=== PATIENT | male | born 1945 | race Caucasian/White ===

== ENCOUNTER 2019-07-09 13:44 | Inpatient (IN) | payer MEDICARE, OTHER ==
[~2019-07-09] VITALS: Ht 175.3 cm; Wt 82.2 kg
[~2019-07-09 13:44] MED LIST: ALB0.5UD IH; ASPI-1265 PO; CYAN500T63 PO; LISI-600 PO; LOP25T PO; MULT-342 PO; PANT40TA39 PO; SIMV80TA2 PO; SPIIN IH; TIOT18CA7 IH; etomidate 2mg/ml inj. ONE
[2019-07-09] MEDS ORDERED: aspirin 81mg tab.chew PO ONE (14:10)
[2019-07-09] MEDS ORDERED: diltiazem 5mg/ml 5ml inj. IV ONE ×2 (14:15→15:00)
[2019-07-09] MEDS ORDERED: methylPREDNISolone sod succ 125mg/2ml vial IV ONE (14:25)
[2019-07-09] MEDS ORDERED: ipratropium/albuterol 3ml nebule NEB ONE (14:25)
[2019-07-09 14:48] LABS: BASOPHILS # (AUTO) 0.1 X10'3 (0-0.2); BASOPHILS % (AUTO) 0.6 % (0-1); EOSINOPHILS # (AUTO) 0.3 X10'3 (0-0.9); EOSINOPHILS % (AUTO) 2.5 % (0-6); HEMATOCRIT 40.6 % (42.0-52.0); HEMOGLOBIN 13.5 g/dl (14.0-17.9); LYMPHOCYTES # (AUTO) 0.7 X10'3 (1.1-4.8); LYMPHOCYTES % (AUTO) 6.2 % (21-51); MEAN CORPUSCULAR HEMOGLOBIN 32.2 PG (27.0-31.0); MEAN CORPUSCULAR HGB CONC 33.3 g/dL (33.0-36.5); MEAN CORPUSCULAR VOLUME 96.6 FL (78-98); MEAN PLATELET VOLUME 8.6 FL (7.4-10.4); MONOCYTES # (AUTO) 1.4 X10'3 (0-0.9); MONOCYTES % (AUTO) 12.2 % (2-12); NEUTROPHILS # (AUTO) 8.7 X10'3 (1.8-7.7); NEUTROPHILS % (AUTO) 78.5 % (42-75); PLATELET COUNT 269 X10'3 (140-440); RED BLOOD COUNT 4.21 X10'6 (4.70-6.10); WHITE BLOOD COUNT 11.1 X10'3 (4.5-11.0)
--- NOTE | 2019-07-09 14:48 | NUR ---
discussed plan with dr murillo second culture drawn prior to levaquin administration 2 liters ns infused discussed elevated hr in the 140[address] st
[2019-07-09] MEDS ORDERED: normal saline 1000ML IV soln IV ONE (14:55)
[2019-07-09] MEDS ORDERED: levoFLOXACIN-Levaquin 750MG/D5 150 ML IV ONE (14:55)
[2019-07-09 15:00] LABS: ALANINE AMINOTRANSFERASE 23 U/L (12-78); ALBUMIN/GLOBULIN RATIO 0.6 (1.1-1.5); ALKALINE PHOSPHATASE 68 IU/L (46-116); ANION GAP 8 (8-16); ASPARTATE AMINO TRANSFERASE 14 U/L (10-37); BILIRUBIN,TOTAL 0.6 MG/DL (0.1-1.0); BLOOD UREA NITROGEN 20 MG/DL (7-18); CHLORIDE 101 MMOL/L (99-107); CREATININE 1.25 MG/DL (0.60-1.10); GLUCOSE 132 MG/DL (70-104); SODIUM 138 MMOL/L (135-145); TOTAL CARBON DIOXIDE 29.4 MMOL/L (24-32); TOTAL PROTEIN 7.9 G/DL (6.4-8.2); eGFR 57 ML/MIN
[2019-07-09] MEDS ORDERED: diltiazem-D5W 125mg/125ml 125 ML IV SCH (15:00)
[2019-07-09] MEDS ORDERED: diltiazem-NS 100mg/100ml 125 ML IV SCH (15:03)
[2019-07-09 15:08] LABS: MAGNESIUM 1.5 MG/DL (1.5-2.4)
[2019-07-09] MEDS ORDERED: LORazepam 2 mg/ml vial IV ONE ×3 (15:15→15:45)
[2019-07-09 15:36] LABS: ABG BASE EXCESS -0.8 mmol/L (-2.0-3.0); ABG HCO3 23.9 mmol/L (22.0-26.0); ABG OXYGEN SATURATION 92.6 % (95-98); ABG PCO2 (T) 39.7 mmHg (35.0-45.0); ABG PH (T) 7.397 (7.350-7.450); ABG PO2 (T) 63.1 mmHg (83-108); ALLEN'S TEST Positive; FCOHb 1.5 % (0.5-1.5); FLOW 4 L/min; FMetHb 0.1 % (0.3-1.12); FO2Hb 91.1 % (94-100); TOTAL HEMOGLOBIN 13.8 G/dl (14.0-17.9)
[2019-07-09] MEDS: albuterol 2.5 MG/3 ML nebule CONTNEB PRN (15:42)
[2019-07-09] MEDS ORDERED: magnesium 2GM in 50ml NS 50 ML IV PRN (16:00)
[2019-07-09] MEDS ORDERED: potassium Cl 20 mEq SR tablet PO PRN ×2 (16:00)
[2019-07-09] MEDS ORDERED: HYDROcodone/acetaminophen 5mg/325mg tablet PO PRN (16:00)
[2019-07-09] MEDS ORDERED: LORazepam 1 MG tablet PO PRN (16:00)
[2019-07-09] MEDS ORDERED: magnesium hydroxide 30ml (MOM) UD suspension PO PRN (16:00)
[2019-07-09] MEDS ORDERED: morphine 2 MG/ML inj. syringe IV PRN (16:00)
[2019-07-09] MEDS ORDERED: magnesium 4gm in 100ml NS 100 ML IV PRN (16:00)
[2019-07-09] MEDS ORDERED: thiamine inj. 100 MG in normal saline 100ml IV soln 100 ML IV ONE (16:00)
[2019-07-09] MEDS ORDERED: ondansetron/PF 4mg/2ml inj IV PRN (16:00)
[2019-07-09] MEDS ORDERED: acetaminophen 325mg tablet PO PRN (16:00)
[2019-07-09] MEDS ORDERED: LORazepam 2 mg/ml vial IV PRN (16:00)
[2019-07-09] MEDS ORDERED: ipratropium/albuterol 3ml nebule NEB PRN (16:00)
[2019-07-09] MEDS ORDERED: magnesium Cl slow-release 64mg tablet PO PRN (16:00)
[2019-07-09] MEDS ORDERED: mag hydrox/Alum hydrox/simeth 30ml oral suspension PO PRN (16:00)
[2019-07-09] MEDS ORDERED: potassium CL 10mEq/100ml bag 100 ML IV PRN ×2 (16:00)
[2019-07-09] MEDS ORDERED: furosemide 10 MG/1 ML 10ml inj IV ONE (16:05)
[2019-07-09] MEDS ORDERED: magnesium 2GM in 50ml NS 50 ML IV ONE (16:25)
[2019-07-09] MEDS ORDERED: morphine 4 MG/ML inj SYRINge IV ONE (16:25)
[2019-07-09] MEDS: methylPREDNISolone sod succ 125mg/2ml vial IV SCH ×2 (16:32→23:55)
[2019-07-09] MEDS ORDERED: LORA10TA7 PO (16:50)
[2019-07-09] MEDS ORDERED: ASPI-611 PO (16:50)
[2019-07-09] MEDS ORDERED: DIPH25CA83 PO (16:50)
[2019-07-09] MEDS ORDERED: ATOR40TA PO (16:50)
[2019-07-09] MEDS ORDERED: AMLO5TAB PO (16:50)
[2019-07-09] MEDS ORDERED: BUDE10.2 INH (16:53)
[2019-07-09] MEDS ORDERED: pneumococcal 23-VAL P-sac vacc 25 mcg/0.5ml vial IMVAC ONE (17:20)
[2019-07-09] MEDS ORDERED: FLU VACC QS2019-20 36MOS UP/PF 60 MCG/0.5 ML SYRINGE IMVAC ONE (17:25)
[2019-07-09] MEDS: thiamine inj. 100 MG, folic acid inj. 2 MG in normal saline 100ml IV soln 100 ML IV SCH (17:32)
[2019-07-09] MEDS: MVI, adult No.4 with vit. K 10 ML in dextrose 5% water 500ml 500 ML IV SCH ×2 (17:32)
[2019-07-09] MEDS ORDERED: FLU VACC QS 2019-20 (6 MOS UP) 60 MCG/0.5 ML VIAL IMVAC ONE (17:35)
[2019-07-09 17:50] LABS: ABG BASE EXCESS -1.2 mmol/L (-2.0-3.0); ABG HCO3 25.5 mmol/L (22.0-26.0); ABG OXYGEN SATURATION 98.5 % (95-98); ABG PCO2 (T) 50.6 mmHg (35.0-45.0); ABG PH (T) 7.321 (7.350-7.450); ALLEN'S TEST Positive; FCOHb 1.2 % (0.5-1.5); FMetHb 0.2 % (0.3-1.12); FO2Hb 97.1 % (94-100); RESPIRATORY RATE 10 b/min; TOTAL HEMOGLOBIN 13.9 G/dl (14.0-17.9)
--- NOTE | 2019-07-09 17:50 | NUR ---
PHONE REPORT TO MACHINE OPERATOR ASSISTANTJOHNNY RITCHIE. PATIENT TO GO TO ROOM 4185W ON [facility] ON MONITOR
--- NOTE | 2019-07-09 17:52 | NUR ---
Received report from Ling TURNER. Patient will be admitted to room 3017B.
--- NOTE | 2019-07-09 17:59 | NUR ---
Paged Dr Thompson for patient ETOH withdrawl order set. PAGER ID: [phone] MESSAGE: Jacquelyn CELAYA. Uma Rick [id number]. Would you like orders for ETOH withdrawl medication set for patient? Thank you
[2019-07-09 18:00] VITALS: BP 109/83
--- NOTE | 2019-07-09 18:18 | NUR ---
Patient admitted to room 3017B.
--- NOTE | 2019-07-09 18:40 | NUR ---
Problems reprioritized. Patient report given, questions answered & plan of care reviewed with Sanjeev RN.
--- NOTE | 2019-07-09 18:42 | NUR ---
Patient in room PCU 3017. I have received report from Jacquelyn Griffin RN and had the opportunity to ask questions and assume patient care.
[2019-07-09] MEDS ORDERED: ipratropium/albuterol 3ml nebule NEB SCH (19:00)
[2019-07-09] MEDS ORDERED: haloperidol lactate 5mg/ml inj IM PRN (19:25)
[2019-07-09] MEDS ORDERED: metoprolol tartrate 1mg/ml inj IV PRN (19:25)
[2019-07-09] MEDS ORDERED: diltiazem 30mg tablet PO PRN (19:25)
[2019-07-09] MEDS ORDERED: haloperidol 5mg tablet PO PRN (19:25)
--- NOTE | 2019-07-09 19:30 | NUR ---
per MD Thompson, redraw ABG 2-3 hours after pt is back on Bipap. per MD Thompson, DC Cardizem 1 hour after po metroprolol administration
--- NOTE | 2019-07-09 19:43 | NUR ---
NOTIFIED PAGER ID: [phone] MESSAGE: Max Stephen, [id number]- pt O2 sat was 96% on 3L nc in ER at 1400 today, currently on breathing treatment at 6L and sat is 94%, and Bipap order was D/atilio, should I just titrate O2 via NC to 88-92%? and order ABG in 2-3 hours still?
[2019-07-09] MEDS ORDERED: metoprolol tartrate 25mg tablet PO SCH (20:00)
[2019-07-09] MEDS: lactobacillus rhamnosus 10,000 MMU CELLS/CAPSULE PO SCH (20:45)
[2019-07-09 22:00] VITALS: BP 101/88
[2019-07-09] MEDS: ipratropium/albuterol 3ml nebule NEB SCH (23:14)
[2019-07-10] VITALS (21 sets, daily range): BP systolic 78–124; BP diastolic 48–76
[2019-07-10 02:31] LABS: BASOPHILS % (AUTO) 0.2 % (0-1); EOSINOPHILS % (AUTO) 0.1 % (0-6); HEMATOCRIT 39.8 % (42.0-52.0); HEMOGLOBIN 12.9 g/dl (14.0-17.9); LYMPHOCYTES # (AUTO) 0.3 X10'3 (1.1-4.8); LYMPHOCYTES % (AUTO) 3.2 % (21-51); MEAN CORPUSCULAR HGB CONC 32.4 g/dL (33.0-36.5); MEAN CORPUSCULAR VOLUME 98.7 FL (78-98); MEAN PLATELET VOLUME 8.7 FL (7.4-10.4); MONOCYTES # (AUTO) 0.6 X10'3 (0-0.9); MONOCYTES % (AUTO) 5.7 % (2-12); NEUTROPHILS # (AUTO) 8.8 X10'3 (1.8-7.7); NEUTROPHILS % (AUTO) 90.8 % (42-75); PLATELET COUNT 294 X10'3 (140-440); RED BLOOD COUNT 4.03 X10'6 (4.70-6.10); RED CELL DISTRIBUTION WIDTH 14.3 % (11.5-14.5); WHITE BLOOD COUNT 9.7 X10'3 (4.5-11.0)
[2019-07-10 02:41] LABS: ALBUMIN 2.8 G/DL (3.4-5.0); ANION GAP 11 (8-16); BLOOD UREA NITROGEN 31 MG/DL (7-18); BUN/CREATININE RATIO 13.5 (5.4-32.0); CALCIUM 10.4 MG/DL (8.5-10.1); CHLORIDE 100 MMOL/L (99-107); GLUCOSE 182 MG/DL (70-104); MAGNESIUM 3.3 MG/DL (1.5-2.4); POTASSIUM 5.9 MMOL/L (3.5-5.1); SODIUM 135 MMOL/L (135-145); TOTAL CARBON DIOXIDE 24.1 MMOL/L (24-32); eGFR 28 ML/MIN
[2019-07-10 03:20] LABS: ABG BASE EXCESS -7.1 mmol/L (-2.0-3.0); ABG HCO3 21.4 mmol/L (22.0-26.0); ABG OXYGEN SATURATION 91.1 % (95-98); ABG PCO2 (T) 54.8 mmHg (35.0-45.0); ABG PH (T) 7.208 (7.350-7.450); ABG PO2 (T) 68.5 mmHg (83-108); ALLEN'S TEST Positive; FCOHb 0.5 % (0.5-1.5); FMetHb 0.1 % (0.3-1.12); FO2Hb 90.6 % (94-100); MINUTE VOLUME 30 L/min; PATIENT TEMPERATURE 36.8; RESPIRATORY RATE 18 b/min; RESPIRATORY RATE (OBSERVED) 20 b/min; TOTAL HEMOGLOBIN 13.8 G/dl (14.0-17.9)
[2019-07-10] MEDS ORDERED: normal saline 500ml IV soln 500 ML IV ONE (03:35)
--- NOTE | 2019-07-10 03:43 | NUR ---
NOTIFIED DR. Boston called, pt arousability has gone down, 2mg ativan was given 30 minutes prior, read off all current vitals including FSBS and current ABGs. . ordered 500ml NS bolus, reduce ativan to 1mg and redraw ABG in 2 hr. will continue to monitor.
[2019-07-10] MEDS ORDERED: LORazepam 1 MG tablet PO PRN (03:45)
[2019-07-10] MEDS: ipratropium/albuterol 3ml nebule NEB SCH ×6 (03:55→22:30)
--- NOTE | 2019-07-10 06:30 | NUR ---
Problems reprioritized. Patient report given, questions answered & plan of care reviewed with Jacquelyn Griffin RN.
--- NOTE | 2019-07-10 06:33 | NUR ---
Patient in room PCU 3017B. I have received report from Sanjeev RN and had the opportunity to ask questions and assume patient care.
--- NOTE | 2019-07-10 07:14 | NUR ---
Pagecarol hospitalist, Dr. Michel. PAGER ID: [phone] MESSAGE: Alicia lafleur [phone]. RE Uma Stephen [id number]. K 5.9, Mg 3.3, Pt on BiPAP but struggling to maintain O2 sat. Rpt ABG done on NOC and RT coming to do another one. Please advise. Thank you!
[2019-07-10] MEDS: pantoprazole 40mg Tablet.DR PO SCH (07:30)
[2019-07-10] MEDS: atorvastatin 20mg tablet PO SCH (08:00)
[2019-07-10] MEDS: furosemide 20 MG/2 ML vial IV SCH ×2 (08:00→20:47)
[2019-07-10] MEDS: lactobacillus rhamnosus 10,000 MMU CELLS/CAPSULE PO SCH ×2 (08:00→20:47)
[2019-07-10] MEDS ORDERED: levoFLOXACIN-Levaquin 750MG/D5 150 ML IV SCH (08:00)
[2019-07-10] MEDS: loratadine 10mg tablet PO SCH (08:00)
[2019-07-10] MEDS ORDERED: enoxaparin 40mg/0.4ml syringe SQ SCH (08:00)
[2019-07-10] MEDS: aspirin 81mg tablet.DR PO SCH (08:00)
[2019-07-10] MEDS: multivitamins, therapeutics tablet PO SCH (08:00)
[2019-07-10] MEDS ORDERED: K and/or MAG REPLACEMENT MC SCH (08:00)
[2019-07-10] MEDS: amLODIPine 5mg tablet PO SCH (08:00)
[2019-07-10] MEDS: cyanocobalamin 500mcg tablet PO SCH (08:00)
[2019-07-10 08:05] LABS: ABG BASE EXCESS -10.7 mmol/L (-2.0-3.0); ABG HCO3 19.6 mmol/L (22.0-26.0); ABG OXYGEN SATURATION 89.3 % (95-98); ABG PCO2 (T) 62.9 mmHg (35.0-45.0); ABG PH (T) 7.111 (7.350-7.450); ABG PO2 (T) 69.5 mmHg (83-108); FCOHb 0.3 % (0.5-1.5); MINUTE VOLUME 11 L/min; RESPIRATORY RATE 16 b/min; RESPIRATORY RATE (OBSERVED) 21 b/min; TOTAL HEMOGLOBIN 14.6 G/dl (14.0-17.9)
--- NOTE | 2019-07-10 08:13 | NUR ---
Paged Dr Michel that new ABGs resulted, PAGER ID: [phone] MESSAGE: Jacquelyn lafleur [phone]. RE Uma Stephen [id number]. New ABG resulted, pH 7.111. RT increased pressures and changed to full face mask. Will repeat ABG within the hour.
[2019-07-10] MEDS ORDERED: normal saline 1000ml 1,000 ML IV ONE (08:30)
--- NOTE | 2019-07-10 08:31 | NUR ---
New order from Dr Michel for 500 cc bolus.
[2019-07-10] MEDS ORDERED: albuterol 2.5 MG/3 ML nebule CONTNEB PRN (08:35)
[2019-07-10] MEDS ORDERED: sodium bicarbonate (8.4%) 1 mEq/ml syringe IV ONE (08:35)
[2019-07-10] MEDS ORDERED: CefTRIAXone/D5W-Rocephin 1gm 50 ML IV ONE (08:35)
[2019-07-10] MEDS ORDERED: calcium chloride inj. 1,000 MG in normal saline 100ml IV soln 90 ML IV ONE (08:35)
[2019-07-10] MEDS ORDERED: normal saline 500ml IV soln 1,000 ML IV ONE (08:35)
--- NOTE | 2019-07-10 09:15 | NUR ---
Due to declining condition, order from Dr Michel for patient to transfer to unit. Dr Michael aware. Patient transferred to Critical Care, room 2009. Transferred with 3 RNs and RT. All belongings sent with patient. Report given to Latia TURNER.
[2019-07-10 09:50] LABS: ABG BASE EXCESS -11.7 mmol/L (-2.0-3.0); ABG HCO3 16.4 mmol/L (22.0-26.0); ABG OXYGEN SATURATION 95.5 % (95-98); ABG PCO2 (T) 45.6 mmHg (35.0-45.0); ABG PH (T) 7.175 (7.350-7.450); FCOHb 0.4 % (0.5-1.5); FO2Hb 95.1 % (94-100); MINUTE VOLUME 16 L/min; RESPIRATORY RATE (OBSERVED) 26 b/min; TOTAL HEMOGLOBIN 12.9 G/dl (14.0-17.9)
[2019-07-10] MEDS ORDERED: NORepinephrine 8mg/ 250ml NS 250 ML IV ONE (09:50)
[2019-07-10] MEDS: diltiazem-NS 100mg/100ml 100 ML IV SCH (10:00)
[2019-07-10] MEDS: albuterol 2.5 MG/3 ML nebule CONTNEB PRN (10:02)
[2019-07-10] MEDS: thiamine inj. 100 MG, folic acid inj. 2 MG in normal saline 100ml IV soln 100 ML IV SCH (10:32)
[2019-07-10] MEDS: methylPREDNISolone sod succ 125mg/2ml vial IV SCH ×3 (10:32→20:47)
[2019-07-10] MEDS: MVI, adult No.4 with vit. K 10 ML in dextrose 5% water 500ml 500 ML IV SCH ×2 (10:34)
[2019-07-10 12:15] LABS: ALBUMIN 2.2 G/DL (3.4-5.0); SODIUM 137 MMOL/L (135-145)
[2019-07-10 12:57] LABS: ALBUMIN/GLOBULIN RATIO 0.6 (1.1-1.5); ALKALINE PHOSPHATASE 69 IU/L (46-116); ANION GAP 15 (8-16); BILIRUBIN,TOTAL 2.1 MG/DL (0.1-1.0); BLOOD UREA NITROGEN 42 MG/DL (7-18); BUN/CREATININE RATIO 14.4 (5.4-32.0); CHLORIDE 104 MMOL/L (99-107); CREATININE 2.91 MG/DL (0.60-1.10); GLUCOSE 182 MG/DL (70-104); TOTAL CARBON DIOXIDE 18.1 MMOL/L (24-32); TOTAL PROTEIN 6.2 G/DL (6.4-8.2); eGFR 21 ML/MIN
[2019-07-10] MEDS ORDERED: sodium bicarbonate (8.4%) inj. 1 MEQ/ML ML ONE (12:58)
[2019-07-10 12:59] LABS: POTASSIUM 7.2 MMOL/L (3.5-5.1)
[2019-07-10 13:15] LABS: ABG BASE EXCESS -12.4 mmol/L (-2.0-3.0); ABG HCO3 17.5 mmol/L (22.0-26.0); ABG PCO2 (T) 56.6 mmHg (35.0-45.0); ABG PH (T) 7.107 (7.350-7.450); ABG PO2 (T) 86.1 mmHg (83-108); FCOHb 0.3 % (0.5-1.5); FMetHb 0.2 % (0.3-1.12); FO2Hb 93.5 % (94-100); MINUTE VOLUME 14 L/min; RESPIRATORY RATE 16 b/min; RESPIRATORY RATE (OBSERVED) 21 b/min; TOTAL HEMOGLOBIN 13.7 G/dl (14.0-17.9)
[2019-07-10 13:16] LABS: ALANINE AMINOTRANSFERASE 3385 U/L (12-78); ASPARTATE AMINO TRANSFERASE 4319 U/L (10-37)
[2019-07-10] MEDS ORDERED: calcium gluconate inj. 1 GM in normal saline 100ml IV soln 90 ML IV ONE (13:20)
[2019-07-10] MEDS ORDERED: etomidate 2mg/ml inj. IV ONE (13:25)
[2019-07-10] MEDS ORDERED: midazolam 2 mg/2 ml injection ONE (13:26)
[2019-07-10] MEDS ORDERED: midazolam 100mg in NS 100ml 100 ML IV PRN (13:45)
[2019-07-10] MEDS ORDERED: FENTANYL-0.9 % NACL/PF 100 ML IV PRN (13:45)
[2019-07-10] MEDS ORDERED: sodium polystyrene sulfonate 15gm/60ml oral suspension PO ONE (13:45)
[2019-07-10] MEDS ORDERED: dextrose 50%-water 50ml dispensing syringe IV ONE (14:20)
[2019-07-10] MEDS ORDERED: insulin regular, human 10 units/0.1 ml syringe IV ONE (14:20)
--- NOTE | 2019-07-10 14:40 | NUR ---
Initial assessment (07/10): Pt is admitted to the unit with dx SOB, sepsis, acute COPD, and clinical pneumonia. According to physical hx, pt is on oxygen and restless in bed, appears like in moderate distress from the alcohol withdrawal symptoms and respiratory distress, provided with banana bag. Pt is currently ALOC noted per MD. Pt is dehydrated, hypotensive, and in metabolic state per MD. Will advance diet as medically indicated to heart healthy. Will continue to monitor. Recommendations: 1. Advance diet as medically indicated to heart healthy 2. Weekly wts Addendum: 07/10/19 at [address] Amended: Links added. Addendum: 07/11/19 at [address] RD agree with sourcing internship note
[2019-07-10 14:50] LABS: ABG BASE EXCESS -11.8 mmol/L (-2.0-3.0); ABG HCO3 16.8 mmol/L (22.0-26.0); ABG OXYGEN SATURATION 89.3 % (95-98); ABG PH (T) 7.154 (7.350-7.450); ABG PO2 (T) 65.2 mmHg (83-108); FCOHb 0.3 % (0.5-1.5); FMetHb 0.1 % (0.3-1.12); FO2Hb 88.9 % (94-100); MINUTE VOLUME 8 L/min; PEEP 5 cm H2O; RESPIRATORY RATE 16 b/min; RESPIRATORY RATE (OBSERVED) 16 b/min; TIDAL VOLUME 500 mL; TOTAL HEMOGLOBIN 13.5 G/dl (14.0-17.9)
[2019-07-10] MEDS: sodium bicarbonate (8.4%) inj. 75 MEQ in dextrose 5% water 500ml 500 ML IV SCH ×2 (14:57→20:57)
[2019-07-10] MEDS ORDERED: albuterol 2.5 MG/3 ML nebule NEB SCH (15:00)
[2019-07-10] MEDS: FENTANYL-0.9 % NACL/PF 100 ML IV SCH (15:08)
[2019-07-10] MEDS: midazolam 100mg in NS 100ml 100 ML IV SCH ×2 (15:09→22:43)
[2019-07-10 15:42] LABS: CREATINE KINASE 298 U/L (39-308)
--- NOTE | 2019-07-10 16:32 | NUR ---
Received pt from PCU at 0830. Pt in respiratory distress on 70% FiO2 on bipap. Obtunded, unresponsive aside from infrequent movement of upper extremities. Pt received total of 2L NS boluses. Dr. Michael at bedside putting in ART and CVL. ART line BP reading 60s/40s. Levophed initiated. CRX shows L sided PNA. LA 4.0, K 4.0, Ca 7.0, Cr 2.91. Pt becoming more and more restless. ABGs worsening, on 100% FiO2. Dr. Michael called at 1300. Pt given bicarb, CaCl, and intubated at 1340. Placed coudee ahn and OGT. Sedated with fent and versed. LA increasing to 4.3. Kaexylate, D50 and insulin given for high K. Will redraw at 1700. Pt family aware and involved.
[2019-07-10 17:30] LABS: ALBUMIN/GLOBULIN RATIO 0.5 (1.1-1.5); ALKALINE PHOSPHATASE 70 IU/L (46-116); ANION GAP 15 (8-16); BILIRUBIN,TOTAL 2.3 MG/DL (0.1-1.0); BLOOD UREA NITROGEN 47 MG/DL (7-18); BUN/CREATININE RATIO 14.4 (5.4-32.0); CALCIUM 7.1 MG/DL (8.5-10.1); CHLORIDE 102 MMOL/L (99-107); CREATININE 3.26 MG/DL (0.60-1.10); GLUCOSE 329 MG/DL (70-104); SODIUM 135 MMOL/L (135-145); TOTAL CARBON DIOXIDE 18.1 MMOL/L (24-32); TOTAL PROTEIN 5.8 G/DL (6.4-8.2); eGFR 19 ML/MIN
[2019-07-10 17:37] LABS: POTASSIUM 6.4 MMOL/L (3.5-5.1)
[2019-07-10] MEDS: NORepinephrine 8mg/ 250ml NS 250 ML IV SCH (17:42)
[2019-07-10 17:55] LABS: ALANINE AMINOTRANSFERASE 5224 U/L (12-78); ASPARTATE AMINO TRANSFERASE > 7000 U/L (10-37)
[2019-07-10] MEDS ORDERED: dextrose 50%-water 50ml dispensing syringe IV PRN ×2 (17:55)
[2019-07-10] MEDS ORDERED: dextrose ORAL solution 15 GM/59 ML bottle PO PRN ×2 (17:55)
[2019-07-10] MEDS ORDERED: glucagon, human recombinant 1mg kit SUBCUT PRN (17:55)
[2019-07-10 20:08] LABS: ALBUMIN 2.1 G/DL (3.4-5.0); ANION GAP 15 (8-16); BLOOD UREA NITROGEN 50 MG/DL (7-18); BUN/CREATININE RATIO 14.6 (5.4-32.0); CALCIUM 7.5 MG/DL (8.5-10.1); CHLORIDE 100 MMOL/L (99-107); CREATINE KINASE 494 U/L (39-308); CREATININE 3.43 MG/DL (0.60-1.10); GLUCOSE 318 MG/DL (70-104); MAGNESIUM 2.5 MG/DL (1.5-2.4); SODIUM 134 MMOL/L (135-145); TOTAL CARBON DIOXIDE 19.4 MMOL/L (24-32); eGFR 18 ML/MIN
[2019-07-10] MEDS: insulin Lispro (HumaLOG) vial - multi-dose SQ SCH (20:54)
[2019-07-10] MEDS: insulin glargine (Lantus) pen - multi-dose SQ SCH (20:55)
[2019-07-11] VITALS (25 sets, daily range): BP systolic 84–120; BP diastolic 48–66
[2019-07-11 00:35] LABS: ALBUMIN 2.3 G/DL (3.4-5.0); ALBUMIN/GLOBULIN RATIO 0.6 (1.1-1.5); ALKALINE PHOSPHATASE 77 IU/L (46-116); ANION GAP 14 (8-16); BILIRUBIN,TOTAL 1.5 MG/DL (0.1-1.0); BLOOD UREA NITROGEN 55 MG/DL (7-18); BUN/CREATININE RATIO 15.1 (5.4-32.0); CALCIUM 7.3 MG/DL (8.5-10.1); CHLORIDE 101 MMOL/L (99-107); CREATININE 3.65 MG/DL (0.60-1.10); GLUCOSE 325 MG/DL (70-104); MAGNESIUM 2.4 MG/DL (1.5-2.4); PHOSPHORUS 7.6 MG/DL (2.3-4.5); POTASSIUM 5.7 MMOL/L (3.5-5.1); SODIUM 136 MMOL/L (135-145); TOTAL CARBON DIOXIDE 21.3 MMOL/L (24-32); TOTAL PROTEIN 6.1 G/DL (6.4-8.2); eGFR 16 ML/MIN
[2019-07-11 01:13] LABS: ALANINE AMINOTRANSFERASE > 7000 U/L (12-78); ASPARTATE AMINO TRANSFERASE > 7000 U/L (10-37)
[2019-07-11] MEDS: methylPREDNISolone sod succ 125mg/2ml vial IV SCH ×4 (02:00→19:52)
[2019-07-11] MEDS: insulin Lispro (HumaLOG) vial - multi-dose SQ SCH ×3 (02:07→14:03)
[2019-07-11] MEDS: ipratropium/albuterol 3ml nebule NEB SCH ×6 (02:31→23:57)
[2019-07-11] MEDS: sodium bicarbonate (8.4%) inj. 75 MEQ in dextrose 5% water 500ml 500 ML IV SCH ×4 (02:36→19:46)
[2019-07-11 04:05] LABS: ABG BASE EXCESS -6.7 mmol/L (-2.0-3.0); ABG HCO3 19.2 mmol/L (22.0-26.0); ABG OXYGEN SATURATION 94.8 % (95-98); ABG PCO2 (T) 39.2 mmHg (35.0-45.0); ABG PH (T) 7.306 (7.350-7.450); FCOHb 0.3 % (0.5-1.5); FMetHb 0.2 % (0.3-1.12); FO2Hb 94.3 % (94-100); MINUTE VOLUME 11 L/min; PATIENT TEMPERATURE 36.6; PEEP 5 cm H2O; RESPIRATORY RATE 22 b/min; RESPIRATORY RATE (OBSERVED) 22 b/min; TIDAL VOLUME 500 mL; TOTAL HEMOGLOBIN 13.4 G/dl (14.0-17.9)
[2019-07-11] MEDS: diltiazem-NS 100mg/100ml 100 ML IV SCH ×3 (04:55→23:03)
[2019-07-11 04:59] LABS: BASOPHILS % (AUTO) 0.3 % (0-1); EOSINOPHILS % (AUTO) 0 % (0-6); HEMATOCRIT 37.9 % (42.0-52.0); HEMOGLOBIN 12.3 g/dl (14.0-17.9); LYMPHOCYTES # (AUTO) 0.4 X10'3 (1.1-4.8); LYMPHOCYTES % (AUTO) 2.4 % (21-51); MEAN CORPUSCULAR HEMOGLOBIN 31.9 PG (27.0-31.0); MEAN CORPUSCULAR HGB CONC 32.5 g/dL (33.0-36.5); MEAN PLATELET VOLUME 9.6 FL (7.4-10.4); MONOCYTES # (AUTO) 0.8 X10'3 (0-0.9); MONOCYTES % (AUTO) 5.6 % (2-12); NEUTROPHILS # (AUTO) 13.5 X10'3 (1.8-7.7); NEUTROPHILS % (AUTO) 91.7 % (42-75); PLATELET COUNT 261 X10'3 (140-440); RED BLOOD COUNT 3.87 X10'6 (4.70-6.10); RED CELL DISTRIBUTION WIDTH 14.2 % (11.5-14.5); WHITE BLOOD COUNT 14.7 X10'3 (4.5-11.0)
[2019-07-11 05:11] LABS: ALBUMIN 2.2 G/DL (3.4-5.0); ALBUMIN/GLOBULIN RATIO 0.6 (1.1-1.5); ALKALINE PHOSPHATASE 80 IU/L (46-116); ANION GAP 15 (8-16); BLOOD UREA NITROGEN 61 MG/DL (7-18); BUN/CREATININE RATIO 15.8 (5.4-32.0); CALCIUM 7.4 MG/DL (8.5-10.1); CHLORIDE 98 MMOL/L (99-107); CREATININE 3.86 MG/DL (0.60-1.10); GLUCOSE 318 MG/DL (70-104); MAGNESIUM 2.4 MG/DL (1.5-2.4); POTASSIUM 5.1 MMOL/L (3.5-5.1); SODIUM 135 MMOL/L (135-145); TOTAL CARBON DIOXIDE 21.7 MMOL/L (24-32); eGFR 15 ML/MIN
[2019-07-11 05:24] LABS: ALANINE AMINOTRANSFERASE > 7000 U/L (12-78); ASPARTATE AMINO TRANSFERASE > 7000 U/L (10-37)
[2019-07-11] MEDS: pantoprazole 40mg Tablet.DR PO SCH (07:30)
[2019-07-11] MEDS: MVI, adult No.4 with vit. K 10 ML in dextrose 5% water 500ml 500 ML IV SCH ×2 (07:51)
[2019-07-11] MEDS: furosemide 20 MG/2 ML vial IV SCH ×2 (07:51→19:52)
[2019-07-11] MEDS: lactobacillus rhamnosus 10,000 MMU CELLS/CAPSULE PO SCH ×2 (07:51→19:52)
[2019-07-11] MEDS: CefTRIAXone/D5W-Rocephin 1gm 50 ML IV SCH (07:51)
[2019-07-11] MEDS: amLODIPine 5mg tablet PO SCH (07:51)
[2019-07-11] MEDS: loratadine 10mg tablet PO SCH (07:51)
[2019-07-11] MEDS: levoFLOXACIN-Levaquin 250mg/D5 50 ML IV SCH (07:51)
[2019-07-11] MEDS: aspirin 81mg tablet.DR PO SCH (07:51)
[2019-07-11] MEDS: atorvastatin 20mg tablet PO SCH (07:51)
[2019-07-11] MEDS: thiamine inj. 100 MG, folic acid inj. 2 MG in normal saline 100ml IV soln 100 ML IV SCH (07:51)
[2019-07-11] MEDS: multivitamins, therapeutics tablet PO SCH (07:52)
[2019-07-11] MEDS: cyanocobalamin 500mcg tablet PO SCH (07:52)
[2019-07-11] MEDS: enoxaparin 30mg/0.3ml syringe SUBCUT SCH (07:52)
[2019-07-11] MEDS ORDERED: furosemide 40mg/4ml inj IV ONE (09:40)
--- NOTE | 2019-07-11 10:20 | NUR ---
Patient in room CICU 2008. I have received report from JOHNNY Quinteros and had the opportunity to ask questions and assume patient care.
--- NOTE | 2019-07-11 12:51 | NUR ---
TF consult (07/10): The pt is responsive, but renal function is worsening noted per MD. Pt may need interim renal placement therapy tomorrow if urine output does not get any better better per MD. Anthony 12 per physical assessment, skin intact. TF per MD, recs Nepro at goal rate of 45ml/hr. Rec. Vital AF 1.2 Yeyo formula when pt's electrolytes stable. LBM 07/10. Will continue to monitor. Recommendations: 1.TF recs Nepro at goal rate 45ml/hr; to provide 1080ml fluid, 1944kcal,87g protein, water flushes 788ml. Unable to meet protein needs without overfeeding on the vent. 2. Have addtional water flushes per MD. 3.daily wts; prealbumin 4. Phos binder per MD due to elevated Phos level 5.If extubated, advance diet as medically indicated to heart healthy Addendum: 07/11/19 at [address] Amended: Links added. Addendum: 07/11/19 at [address] RD agree with commander internal affairs note
[2019-07-11] MEDS: mineral oil/petrolatum ophthal oint EACHEYE SCH ×2 (14:01→19:53)
[2019-07-11 15:46] LABS: ALBUMIN 2.2 G/DL (3.4-5.0); ALBUMIN/GLOBULIN RATIO 0.6 (1.1-1.5); ALKALINE PHOSPHATASE 89 IU/L (46-116); ANION GAP 13 (8-16); BILIRUBIN,TOTAL 0.7 MG/DL (0.1-1.0); BLOOD UREA NITROGEN 68 MG/DL (7-18); BUN/CREATININE RATIO 15.2 (5.4-32.0); CALCIUM 7.1 MG/DL (8.5-10.1); CHLORIDE 97 MMOL/L (99-107); CREATININE 4.46 MG/DL (0.60-1.10); GLUCOSE 301 MG/DL (70-104); MAGNESIUM 2.2 MG/DL (1.5-2.4); POTASSIUM 4.4 MMOL/L (3.5-5.1); SODIUM 135 MMOL/L (135-145); TOTAL CARBON DIOXIDE 25.1 MMOL/L (24-32); TOTAL PROTEIN 5.8 G/DL (6.4-8.2); eGFR 13 ML/MIN
[2019-07-11 15:48] LABS: ALANINE AMINOTRANSFERASE > 7000 U/L (12-78); ASPARTATE AMINO TRANSFERASE > 7000 U/L (10-37)
--- NOTE | 2019-07-11 16:13 | NUR ---
Pt started on cardizem gtt for frequent PACs
[2019-07-11 18:33] LABS: ALBUMIN 2.4 G/DL (3.4-5.0); ALBUMIN/GLOBULIN RATIO 0.6 (1.1-1.5); ALKALINE PHOSPHATASE 95 IU/L (46-116); ANION GAP 13 (8-16); BILIRUBIN,TOTAL 0.7 MG/DL (0.1-1.0); BLOOD UREA NITROGEN 72 MG/DL (7-18); BUN/CREATININE RATIO 15.4 (5.4-32.0); CALCIUM 7.1 MG/DL (8.5-10.1); CHLORIDE 98 MMOL/L (99-107); CREATININE 4.67 MG/DL (0.60-1.10); GLUCOSE 263 MG/DL (70-104); POTASSIUM 4.5 MMOL/L (3.5-5.1); SODIUM 136 MMOL/L (135-145); TOTAL CARBON DIOXIDE 25.5 MMOL/L (24-32); TOTAL PROTEIN 6.2 G/DL (6.4-8.2); eGFR 12 ML/MIN
[2019-07-11 19:01] LABS: ALANINE AMINOTRANSFERASE > 7000 U/L (12-78); ASPARTATE AMINO TRANSFERASE > 7000 U/L (10-37)
--- NOTE | 2019-07-11 19:45 | NUR ---
PT is intubated and mechanically vented, tolerating settings well. PT is resting with no s/s of distress noted at this time. VSS. TF is running @ 20ml/hr to OG, will increase towards goal rate as PT tolerates. Mon in place draining to gravity. Bed is locked and low. Bilat soft wrist restraints in place and secure. Will continue to monitor.
[2019-07-11] MEDS: acetylcysteine 200 MG/ml 4ml vial NG SCH (19:52)
[2019-07-11] MEDS: insulin regular, human vial - multi-dose SQ SCH (20:26)
[2019-07-11] MEDS: insulin glargine (Lantus) pen - multi-dose SQ SCH (20:29)
--- NOTE | 2019-07-11 21:35 | NUR ---
Sedation being titrated up along with frequent boluses. PT keeps peak pressuring and not getting targeted TV, and is not in compliance with vent. With increasing sedation, volumes have improved slightly. RT at bedside making changes to vent. Will continue to monitor.
[2019-07-11] MEDS: FENTANYL-0.9 % NACL/PF 100 ML IV SCH (23:04)
--- NOTE | 2019-07-11 23:30 | NUR ---
PT resting with no s/s of distress noted at this time. VSS. PT tolerating sedation well and is synchronous with vent. Bed is locked and low. Bilat soft wrist restraints remain in place and secure. Will continue to monitor.
[2019-07-12] VITALS (26 sets, daily range): BP systolic 95–141; BP diastolic 50–102
[2019-07-12] MEDS: sodium bicarbonate (8.4%) inj. 75 MEQ in dextrose 5% water 500ml 500 ML IV SCH ×3 (01:44→11:45)
[2019-07-12] MEDS: insulin regular, human vial - multi-dose SQ SCH ×4 (01:59→20:28)
[2019-07-12] MEDS: diltiazem-NS 100mg/100ml 100 ML IV SCH ×3 (02:00→18:09)
[2019-07-12] MEDS: methylPREDNISolone sod succ 125mg/2ml vial IV SCH ×4 (02:02→20:26)
[2019-07-12] MEDS: mineral oil/petrolatum ophthal oint EACHEYE SCH ×4 (02:02→20:26)
[2019-07-12] MEDS: ipratropium/albuterol 3ml nebule NEB SCH ×6 (03:18→23:23)
--- NOTE | 2019-07-12 03:30 | NUR ---
During nightly bath PT O2 sat dropped down to mid 60's, charge nurse at bedside, began to bag PT, no resistance was met. Paged RT. O2 sat slowly came up to low-mid 90's. RT increased FiO2 back up to 75%. PT remains on AC/PC, tolerating well. Will continue to monitor.
[2019-07-12 03:40] LABS: BASOPHILS % (AUTO) 0.1 % (0-1); EOSINOPHILS % (AUTO) 0 % (0-6); HEMATOCRIT 35.3 % (42.0-52.0); HEMOGLOBIN 11.6 g/dl (14.0-17.9); LYMPHOCYTES # (AUTO) 0.2 X10'3 (1.1-4.8); LYMPHOCYTES % (AUTO) 1.4 % (21-51); MEAN CORPUSCULAR HEMOGLOBIN 31.5 PG (27.0-31.0); MEAN CORPUSCULAR HGB CONC 32.8 g/dL (33.0-36.5); MEAN PLATELET VOLUME 9.9 FL (7.4-10.4); MONOCYTES # (AUTO) 0.7 X10'3 (0-0.9); MONOCYTES % (AUTO) 4.8 % (2-12); NEUTROPHILS # (AUTO) 12.7 X10'3 (1.8-7.7); NEUTROPHILS % (AUTO) 93.7 % (42-75); PLATELET COUNT 221 X10'3 (140-440); RED BLOOD COUNT 3.68 X10'6 (4.70-6.10); RED CELL DISTRIBUTION WIDTH 14.1 % (11.5-14.5); WHITE BLOOD COUNT 13.6 X10'3 (4.5-11.0)
[2019-07-12 03:50] LABS: PARTIAL THROMBOPLASTIN TIME 32 SECONDS (22-32)
[2019-07-12 04:13] LABS: ALBUMIN 2.4 G/DL (3.4-5.0); ALBUMIN/GLOBULIN RATIO 0.7 (1.1-1.5); ALKALINE PHOSPHATASE 101 IU/L (46-116); ANION GAP 15 (8-16); BILIRUBIN,TOTAL 0.8 MG/DL (0.1-1.0); BLOOD UREA NITROGEN 81 MG/DL (7-18); BUN/CREATININE RATIO 15.6 (5.4-32.0); CHLORIDE 95 MMOL/L (99-107); CREATININE 5.19 MG/DL (0.60-1.10); GLUCOSE 243 MG/DL (70-104); MAGNESIUM 2.1 MG/DL (1.5-2.4); POTASSIUM 4.2 MMOL/L (3.5-5.1); SODIUM 135 MMOL/L (135-145); TOTAL CARBON DIOXIDE 24.8 MMOL/L (24-32); eGFR 11 ML/MIN
[2019-07-12 04:14] LABS: ASPARTATE AMINO TRANSFERASE > 7000 U/L (10-37)
[2019-07-12 04:15] LABS: ALANINE AMINOTRANSFERASE > 7000 U/L (12-78)
[2019-07-12] MEDS: midazolam 100mg in NS 100ml 100 ML IV SCH ×2 (04:40→20:57)
[2019-07-12 05:36] LABS: ABG BASE EXCESS -0.7 mmol/L (-2.0-3.0); ABG OXYGEN SATURATION 93.9 % (95-98); ABG PCO2 (T) 63.9 mmHg (35.0-45.0); ABG PH (T) 7.255 (7.350-7.450); ABG PO2 (T) 82.3 mmHg (83-108); FCOHb 0.3 % (0.5-1.5); FMetHb 0.2 % (0.3-1.12); FO2Hb 93.4 % (94-100); MINUTE VOLUME 10 L/min; PATIENT TEMPERATURE 36.2; PEEP 5 cm H2O; RESPIRATORY RATE 18 b/min; RESPIRATORY RATE (OBSERVED) 18 b/min
--- NOTE | 2019-07-12 06:39 | NUR ---
Problems reprioritized. Patient report given, questions answered & plan of care reviewed with Latia TURNER.
--- NOTE | 2019-07-12 06:41 | NUR ---
Patient in room CICU 2008. I have received report from JOHNNY Bob and had the opportunity to ask questions and assume patient care.
[2019-07-12 07:19] LABS: HBSAG SCREEN Negative (Negative); HEPATITIS C ANTIBODY <0.1 s/co ratio (0.0-0.9)
[2019-07-12] MEDS: MVI, adult No.4 with vit. K 10 ML in dextrose 5% water 500ml 500 ML IV SCH ×2 (07:23)
[2019-07-12] MEDS: thiamine inj. 100 MG, folic acid inj. 2 MG in normal saline 100ml IV soln 100 ML IV SCH (07:23)
[2019-07-12] MEDS: CefTRIAXone/D5W-Rocephin 1gm 50 ML IV SCH (07:23)
[2019-07-12] MEDS: acetylcysteine 200 MG/ml 4ml vial NG SCH (07:24)
[2019-07-12] MEDS: FENTANYL-0.9 % NACL/PF 100 ML IV SCH ×2 (07:24→20:27)
[2019-07-12] MEDS: cyanocobalamin 500mcg tablet PO SCH (07:25)
[2019-07-12] MEDS: aspirin 81mg tablet.DR PO SCH (07:25)
[2019-07-12] MEDS: pantoprazole 40mg Tablet.DR PO SCH (07:25)
[2019-07-12] MEDS: amLODIPine 5mg tablet PO SCH (07:25)
[2019-07-12] MEDS: levoFLOXACIN-Levaquin 250mg/D5 50 ML IV SCH (07:25)
[2019-07-12] MEDS: multivitamins, therapeutics tablet PO SCH (07:25)
[2019-07-12] MEDS: lactobacillus rhamnosus 10,000 MMU CELLS/CAPSULE PO SCH ×2 (07:25→20:26)
[2019-07-12] MEDS: loratadine 10mg tablet PO SCH (07:25)
[2019-07-12] MEDS: furosemide 20 MG/2 ML vial IV SCH ×2 (07:25→20:26)
[2019-07-12] MEDS: atorvastatin 20mg tablet PO SCH (07:25)
[2019-07-12] MEDS: enoxaparin 30mg/0.3ml syringe SUBCUT SCH (07:26)
[2019-07-12] MEDS ORDERED: calcium chloride inj. 1,000 MG in normal saline 100ml IV soln 100 ML IV PRN (09:00)
[2019-07-12] MEDS ORDERED: magnesium 4gm in 100ml NS 100 ML IV PRN (09:00)
[2019-07-12] MEDS: Duosol 4K/3 Ca (w/calcium) 5,000 ML HE SCH ×2 (13:12→20:15)
[2019-07-12 14:49] LABS: BASOPHILS % (AUTO) 0.1 % (0-1); EOSINOPHILS % (AUTO) 0 % (0-6); HEMATOCRIT 34.8 % (42.0-52.0); HEMOGLOBIN 11.6 g/dl (14.0-17.9); LYMPHOCYTES # (AUTO) 0.2 X10'3 (1.1-4.8); LYMPHOCYTES % (AUTO) 1.5 % (21-51); MEAN CORPUSCULAR HEMOGLOBIN 31.5 PG (27.0-31.0); MEAN CORPUSCULAR HGB CONC 33.2 g/dL (33.0-36.5); MEAN PLATELET VOLUME 9.4 FL (7.4-10.4); MONOCYTES # (AUTO) 0.9 X10'3 (0-0.9); NEUTROPHILS # (AUTO) 13.4 X10'3 (1.8-7.7); NEUTROPHILS % (AUTO) 92.4 % (42-75); PLATELET COUNT 230 X10'3 (140-440); RED BLOOD COUNT 3.67 X10'6 (4.70-6.10); RED CELL DISTRIBUTION WIDTH 13.8 % (11.5-14.5); WHITE BLOOD COUNT 14.5 X10'3 (4.5-11.0)
[2019-07-12 15:03] LABS: ALBUMIN 2.4 G/DL (3.4-5.0); BLOOD UREA NITROGEN 77 MG/DL (7-18); BUN/CREATININE RATIO 14.5 (5.4-32.0); CALCIUM 7.3 MG/DL (8.5-10.1); CREATININE 5.32 MG/DL (0.60-1.10); GLUCOSE 263 MG/DL (70-104); MAGNESIUM 1.9 MG/DL (1.5-2.4); PHOSPHORUS 3.4 MG/DL (2.3-4.5); TOTAL CARBON DIOXIDE 22.6 MMOL/L (24-32); eGFR 11 ML/MIN
[2019-07-12 15:14] LABS: ANION GAP 16 (8-16); CHLORIDE 93 MMOL/L (99-107); POTASSIUM 3.9 MMOL/L (3.5-5.1); SODIUM 132 MMOL/L (135-145)
[2019-07-12 15:34] LABS: BASOPHILS % (AUTO) 0.1 % (0-1); EOSINOPHILS % (AUTO) 0 % (0-6); HEMATOCRIT 34.7 % (42.0-52.0); HEMOGLOBIN 11.5 g/dl (14.0-17.9); LYMPHOCYTES # (AUTO) 0.2 X10'3 (1.1-4.8); LYMPHOCYTES % (AUTO) 1.5 % (21-51); MEAN CORPUSCULAR HEMOGLOBIN 31.7 PG (27.0-31.0); MEAN CORPUSCULAR HGB CONC 33.2 g/dL (33.0-36.5); MEAN CORPUSCULAR VOLUME 95.2 FL (78-98); MEAN PLATELET VOLUME 9.6 FL (7.4-10.4); MONOCYTES # (AUTO) 0.8 X10'3 (0-0.9); MONOCYTES % (AUTO) 6.2 % (2-12); NEUTROPHILS # (AUTO) 12.6 X10'3 (1.8-7.7); NEUTROPHILS % (AUTO) 92.2 % (42-75); PLATELET COUNT 227 X10'3 (140-440); RED BLOOD COUNT 3.64 X10'6 (4.70-6.10); WHITE BLOOD COUNT 13.6 X10'3 (4.5-11.0)
[2019-07-12 15:45] LABS: ALBUMIN 2.4 G/DL (3.4-5.0); ANION GAP 15 (8-16); BLOOD UREA NITROGEN 76 MG/DL (7-18); BUN/CREATININE RATIO 14.7 (5.4-32.0); CALCIUM 7.5 MG/DL (8.5-10.1); CHLORIDE 93 MMOL/L (99-107); CREATININE 5.17 MG/DL (0.60-1.10); GLUCOSE 254 MG/DL (70-104); MAGNESIUM 1.9 MG/DL (1.5-2.4); POTASSIUM 3.8 MMOL/L (3.5-5.1); SODIUM 132 MMOL/L (135-145); TOTAL CARBON DIOXIDE 23.9 MMOL/L (24-32); eGFR 11 ML/MIN
[2019-07-12] MEDS: potassium Cl 20mEq/100mL bag 100 ML IV PRN ×2 (15:49→19:19)
[2019-07-12 16:30] LABS: BASOPHILS % (AUTO) 0.3 % (0-1); EOSINOPHILS % (AUTO) 0 % (0-6); HEMATOCRIT 33.3 % (42.0-52.0); HEMOGLOBIN 11.2 g/dl (14.0-17.9); LYMPHOCYTES # (AUTO) 0.2 X10'3 (1.1-4.8); LYMPHOCYTES % (AUTO) 1.7 % (21-51); MEAN CORPUSCULAR HEMOGLOBIN 31.8 PG (27.0-31.0); MEAN CORPUSCULAR HGB CONC 33.6 g/dL (33.0-36.5); MEAN CORPUSCULAR VOLUME 94.8 FL (78-98); MEAN PLATELET VOLUME 9.7 FL (7.4-10.4); MONOCYTES # (AUTO) 0.7 X10'3 (0-0.9); MONOCYTES % (AUTO) 6.2 % (2-12); NEUTROPHILS % (AUTO) 91.8 % (42-75); PLATELET COUNT 209 X10'3 (140-440); RED BLOOD COUNT 3.51 X10'6 (4.70-6.10)
[2019-07-12] MEDS: NORepinephrine 8mg/ 250ml NS 250 ML IV SCH (16:30)
[2019-07-12 16:41] LABS: ALBUMIN 2.3 G/DL (3.4-5.0); ANION GAP 15 (8-16); BLOOD UREA NITROGEN 74 MG/DL (7-18); BUN/CREATININE RATIO 14.8 (5.4-32.0); CALCIUM 7.7 MG/DL (8.5-10.1); CHLORIDE 95 MMOL/L (99-107); CREATININE 4.99 MG/DL (0.60-1.10); GLUCOSE 247 MG/DL (70-104); MAGNESIUM 1.9 MG/DL (1.5-2.4); PHOSPHORUS 2.6 MG/DL (2.3-4.5); POTASSIUM 3.8 MMOL/L (3.5-5.1); SODIUM 132 MMOL/L (135-145); TOTAL CARBON DIOXIDE 22.5 MMOL/L (24-32); eGFR 11 ML/MIN
[2019-07-12 17:30] LABS: BASOPHILS # (AUTO) 0.1 X10'3 (0-0.2); BASOPHILS % (AUTO) 0.6 % (0-1); EOSINOPHILS % (AUTO) 0.1 % (0-6); HEMOGLOBIN 11.3 g/dl (14.0-17.9); LYMPHOCYTES # (AUTO) 0.2 X10'3 (1.1-4.8); LYMPHOCYTES % (AUTO) 1.8 % (21-51); MEAN CORPUSCULAR HEMOGLOBIN 32.2 PG (27.0-31.0); MEAN CORPUSCULAR HGB CONC 34.3 g/dL (33.0-36.5); MEAN CORPUSCULAR VOLUME 93.8 FL (78-98); MEAN PLATELET VOLUME 9.4 FL (7.4-10.4); MONOCYTES # (AUTO) 0.8 X10'3 (0-0.9); MONOCYTES % (AUTO) 6.5 % (2-12); NEUTROPHILS # (AUTO) 10.5 X10'3 (1.8-7.7); PLATELET COUNT 207 X10'3 (140-440); RED BLOOD COUNT 3.51 X10'6 (4.70-6.10); RED CELL DISTRIBUTION WIDTH 14.1 % (11.5-14.5); WHITE BLOOD COUNT 11.6 X10'3 (4.5-11.0)
[2019-07-12 17:38] LABS: ALBUMIN 2.3 G/DL (3.4-5.0); ANION GAP 15 (8-16); BLOOD UREA NITROGEN 72 MG/DL (7-18); BUN/CREATININE RATIO 14.8 (5.4-32.0); CALCIUM 7.6 MG/DL (8.5-10.1); CHLORIDE 94 MMOL/L (99-107); CREATININE 4.85 MG/DL (0.60-1.10); GLUCOSE 247 MG/DL (70-104); MAGNESIUM 1.8 MG/DL (1.5-2.4); PHOSPHORUS 2.5 MG/DL (2.3-4.5); POTASSIUM 4.1 MMOL/L (3.5-5.1); SODIUM 132 MMOL/L (135-145); TOTAL CARBON DIOXIDE 23.1 MMOL/L (24-32); eGFR 12 ML/MIN
--- NOTE | 2019-07-12 18:20 | NUR ---
Problems reprioritized. Patient report given, questions answered & plan of care reviewed with JOHNNY Bob.
--- NOTE | 2019-07-12 18:27 | NUR ---
Patient in room CICU 2009. I have received report from Latia TURNER, and had the opportunity to ask questions and assume patient care.
--- NOTE | 2019-07-12 19:30 | NUR ---
PT is intubated and mechanically vented, tolerating settings well. PT is resting with no s/s of distress noted at this time. VSS. PT is on CVVH and tolerating well, no pressors needed at this time. CT to RT chest, secured to PT with serous drainage noted in tubing. TF is running @ goal rate of 45ml/hr to OG. Mon in place draining to gravity. Bed is locked and low. Bilat soft wrist restraints in place and secure. Will continue to monitor.
[2019-07-12] MEDS: insulin glargine (Lantus) pen - multi-dose SQ SCH (20:29)
--- NOTE | 2019-07-12 22:30 | NUR ---
PT resting with no s/s of distress noted at this time. VSS. Bed is locked and low. Bilat soft wrist restraints in place and secure. Will continue to monitor
[2019-07-12 23:06] LABS: BASOPHILS % (AUTO) 0.1 % (0-1); EOSINOPHILS % (AUTO) 0 % (0-6); HEMATOCRIT 33.1 % (42.0-52.0); HEMOGLOBIN 11.3 g/dl (14.0-17.9); LYMPHOCYTES # (AUTO) 0.1 X10'3 (1.1-4.8); LYMPHOCYTES % (AUTO) 1.3 % (21-51); MEAN CORPUSCULAR HGB CONC 34.3 g/dL (33.0-36.5); MEAN CORPUSCULAR VOLUME 93.5 FL (78-98); MEAN PLATELET VOLUME 9.2 FL (7.4-10.4); MONOCYTES # (AUTO) 0.8 X10'3 (0-0.9); MONOCYTES % (AUTO) 7.5 % (2-12); NEUTROPHILS # (AUTO) 10.3 X10'3 (1.8-7.7); NEUTROPHILS % (AUTO) 91.1 % (42-75); PLATELET COUNT 212 X10'3 (140-440); RED BLOOD COUNT 3.54 X10'6 (4.70-6.10); RED CELL DISTRIBUTION WIDTH 13.8 % (11.5-14.5); WHITE BLOOD COUNT 11.3 X10'3 (4.5-11.0)
[2019-07-12 23:19] LABS: ALBUMIN 2.3 G/DL (3.4-5.0); ANION GAP 11 (8-16); BLOOD UREA NITROGEN 59 MG/DL (7-18); BUN/CREATININE RATIO 14.1 (5.4-32.0); CALCIUM 8.3 MG/DL (8.5-10.1); CHLORIDE 99 MMOL/L (99-107); CREATININE 4.17 MG/DL (0.60-1.10); GLUCOSE 234 MG/DL (70-104); MAGNESIUM 1.8 MG/DL (1.5-2.4); PHOSPHORUS 1.8 MG/DL (2.3-4.5); POTASSIUM 4.1 MMOL/L (3.5-5.1); SODIUM 134 MMOL/L (135-145); TOTAL CARBON DIOXIDE 23.9 MMOL/L (24-32); eGFR 14 ML/MIN
[2019-07-12] MEDS ORDERED: sodium phosphate inj. 15 MMOL in dextrose 5%-water 150 ML IV PRN (23:30)
[2019-07-12] MEDS ORDERED: sodium phosphate inj. 30 MMOL in dextrose 5%-water 250 ML IV PRN (23:30)
[2019-07-13] VITALS (25 sets, daily range): BP systolic 95–152; BP diastolic 55–115
--- NOTE | 2019-07-13 02:00 | NUR ---
PT resting with no s/s of distress noted at this time. VSS. Bed is locked and low. Bilat soft wrist restraints in place and secure. Will continue to monitor.
[2019-07-13] MEDS: methylPREDNISolone sod succ 125mg/2ml vial IV SCH ×4 (02:11→19:47)
[2019-07-13] MEDS: mineral oil/petrolatum ophthal oint EACHEYE SCH ×4 (02:11→19:47)
[2019-07-13] MEDS: insulin regular, human vial - multi-dose SQ SCH ×4 (02:20→20:18)
[2019-07-13] MEDS: calcium chloride inj. 1,100 MG in Duosol 4k/NO Calcium 5,000 ML IV SCH ×4 (03:00→13:52)
[2019-07-13] MEDS: ipratropium/albuterol 3ml nebule NEB SCH ×6 (03:23→22:57)
[2019-07-13 03:45] LABS: ABG BASE EXCESS 1.3 mmol/L (-2.0-3.0); ABG HCO3 20.9 mmol/L (22.0-26.0); ABG OXYGEN SATURATION 95.8 % (95-98); ABG PCO2 (T) 19.7 mmHg (35.0-45.0); ABG PO2 (T) 68.1 mmHg (83-108); FCOHb 0.3 % (0.5-1.5); FMetHb 0.3 % (0.3-1.12); FO2Hb 95.2 % (94-100); MINUTE VOLUME 20 L/min; PATIENT TEMPERATURE 35.7; PEEP 5 cm H2O; RESPIRATORY RATE 22 b/min; RESPIRATORY RATE (OBSERVED) 22 b/min; TOTAL HEMOGLOBIN 12.1 G/dl (14.0-17.9)
--- NOTE | 2019-07-13 03:55 | NUR ---
ABG resulted critical PH and CO2, DROP PRESS HAND Marquis notified. RT made changes to vent settings. Order placed to for repeat ABG this AM. Will continue to monitor.
[2019-07-13] MEDS: diltiazem-NS 100mg/100ml 100 ML IV SCH ×3 (04:59→21:54)
[2019-07-13 05:48] LABS: BASOPHILS % (AUTO) 0 % (0-1); EOSINOPHILS % (AUTO) 0 % (0-6); HEMOGLOBIN 11.4 g/dl (14.0-17.9); LYMPHOCYTES # (AUTO) 0.2 X10'3 (1.1-4.8); LYMPHOCYTES % (AUTO) 1.5 % (21-51); MEAN CORPUSCULAR HGB CONC 33.6 g/dL (33.0-36.5); MEAN CORPUSCULAR VOLUME 95.2 FL (78-98); MEAN PLATELET VOLUME 9.5 FL (7.4-10.4); MONOCYTES # (AUTO) 0.7 X10'3 (0-0.9); MONOCYTES % (AUTO) 6.9 % (2-12); NEUTROPHILS # (AUTO) 9.7 X10'3 (1.8-7.7); NEUTROPHILS % (AUTO) 91.6 % (42-75); PLATELET COUNT 216 X10'3 (140-440); RED BLOOD COUNT 3.57 X10'6 (4.70-6.10); RED CELL DISTRIBUTION WIDTH 14.1 % (11.5-14.5); WHITE BLOOD COUNT 10.6 X10'3 (4.5-11.0)
[2019-07-13 05:50] LABS: PARTIAL THROMBOPLASTIN TIME 29 SECONDS (22-32)
[2019-07-13 06:02] LABS: ALBUMIN 2.2 G/DL (3.4-5.0); ALBUMIN/GLOBULIN RATIO 0.6 (1.1-1.5); ALKALINE PHOSPHATASE 150 IU/L (46-116); ANION GAP 11 (8-16); BILIRUBIN,TOTAL 0.7 MG/DL (0.1-1.0); BLOOD UREA NITROGEN 50 MG/DL (7-18); BUN/CREATININE RATIO 13.9 (5.4-32.0); CALCIUM 8.4 MG/DL (8.5-10.1); CHLORIDE 101 MMOL/L (99-107); CREATININE 3.59 MG/DL (0.60-1.10); GLUCOSE 190 MG/DL (70-104); PHOSPHORUS 3.8 MG/DL (2.3-4.5); POTASSIUM 4.2 MMOL/L (3.5-5.1); SODIUM 136 MMOL/L (135-145); TOTAL CARBON DIOXIDE 24.5 MMOL/L (24-32); TOTAL PROTEIN 5.9 G/DL (6.4-8.2); eGFR 17 ML/MIN
[2019-07-13] MEDS: FENTANYL-0.9 % NACL/PF 100 ML IV SCH ×2 (06:10→17:44)
[2019-07-13 06:48] LABS: ALANINE AMINOTRANSFERASE 4522 U/L (12-78); ASPARTATE AMINO TRANSFERASE 2704 U/L (10-37)
--- NOTE | 2019-07-13 06:49 | NUR ---
Problems reprioritized. Patient report given, questions answered & plan of care reviewed with Clarice TURNER.
[2019-07-13 07:51] LABS: ABG BASE EXCESS -0.8 mmol/L (-2.0-3.0); ABG HCO3 21.3 mmol/L (22.0-26.0); ABG OXYGEN SATURATION 96.8 % (95-98); ABG PH (T) 7.499 (7.350-7.450); ABG PO2 (T) 92.7 mmHg (83-108); FCOHb 0.3 % (0.5-1.5); FMetHb 0.2 % (0.3-1.12); FO2Hb 96.3 % (94-100); MINUTE VOLUME 16 L/min; PEEP 5 cm H2O; RESPIRATORY RATE 18 b/min; TIDAL VOLUME 867 mL; TOTAL HEMOGLOBIN 12.3 G/dl (14.0-17.9)
--- NOTE | 2019-07-13 07:58 | NUR ---
Patient in room CICU 2008. I have received report from Baylee TURNER and had the opportunity to ask questions and assume patient. care. Patient stable at transfer of care
[2019-07-13] MEDS: levoFLOXACIN-Levaquin 250mg/D5 50 ML IV SCH (08:46)
[2019-07-13] MEDS: CefTRIAXone/D5W-Rocephin 1gm 50 ML IV SCH (08:47)
[2019-07-13] MEDS: MVI, adult No.4 with vit. K 10 ML in dextrose 5% water 500ml 500 ML IV SCH ×2 (08:47)
[2019-07-13] MEDS: furosemide 20 MG/2 ML vial IV SCH ×2 (08:48→19:47)
[2019-07-13] MEDS: enoxaparin 30mg/0.3ml syringe SUBCUT SCH (08:49)
[2019-07-13] MEDS: atorvastatin 20mg tablet PO SCH (08:49)
[2019-07-13] MEDS: amLODIPine 5mg tablet PO SCH (08:49)
[2019-07-13] MEDS: cyanocobalamin 500mcg tablet PO SCH (08:49)
[2019-07-13] MEDS: aspirin 81mg tablet.DR PO SCH (08:49)
[2019-07-13] MEDS: multivitamins, therapeutics tablet PO SCH (08:54)
[2019-07-13] MEDS: thiamine inj. 100 MG, folic acid inj. 2 MG in normal saline 100ml IV soln 100 ML IV SCH (08:55)
[2019-07-13] MEDS: lactobacillus rhamnosus 10,000 MMU CELLS/CAPSULE PO SCH ×2 (08:55→19:47)
[2019-07-13] MEDS: loratadine 10mg tablet PO SCH (08:55)
[2019-07-13] MEDS: pantoprazole 40mg Tablet.DR PO SCH (08:57)
[2019-07-13 11:57] LABS: BASOPHILS % (AUTO) 0.3 % (0-1); EOSINOPHILS % (AUTO) 0 % (0-6); HEMATOCRIT 33.4 % (42.0-52.0); HEMOGLOBIN 11.2 g/dl (14.0-17.9); LYMPHOCYTES # (AUTO) 0.1 X10'3 (1.1-4.8); LYMPHOCYTES % (AUTO) 1.3 % (21-51); MEAN CORPUSCULAR HEMOGLOBIN 31.6 PG (27.0-31.0); MEAN CORPUSCULAR HGB CONC 33.4 g/dL (33.0-36.5); MEAN CORPUSCULAR VOLUME 94.6 FL (78-98); MEAN PLATELET VOLUME 9.5 FL (7.4-10.4); MONOCYTES # (AUTO) 0.8 X10'3 (0-0.9); MONOCYTES % (AUTO) 6.7 % (2-12); NEUTROPHILS # (AUTO) 10.3 X10'3 (1.8-7.7); NEUTROPHILS % (AUTO) 91.7 % (42-75); PLATELET COUNT 201 X10'3 (140-440); RED BLOOD COUNT 3.53 X10'6 (4.70-6.10); RED CELL DISTRIBUTION WIDTH 14.2 % (11.5-14.5); WHITE BLOOD COUNT 11.3 X10'3 (4.5-11.0)
[2019-07-13 12:11] LABS: ALBUMIN 2.1 G/DL (3.4-5.0); ANION GAP 9 (8-16); BLOOD UREA NITROGEN 45 MG/DL (7-18); BUN/CREATININE RATIO 14.4 (5.4-32.0); CALCIUM 8.3 MG/DL (8.5-10.1); CHLORIDE 103 MMOL/L (99-107); CREATININE 3.13 MG/DL (0.60-1.10); GLUCOSE 216 MG/DL (70-104); PHOSPHORUS 3.4 MG/DL (2.3-4.5); POTASSIUM 4.2 MMOL/L (3.5-5.1); SODIUM 134 MMOL/L (135-145); TOTAL CARBON DIOXIDE 21.6 MMOL/L (24-32); eGFR 20 ML/MIN
--- NOTE | 2019-07-13 13:09 | NUR ---
F/U (07/13): Pt was on CVVH since yesterday per bedside RN. Pt is tolerating TF at goal rate;however,the Nepro formula is not meeting pt's protein needs. Per MD changes TF to higher protein formula, rec. Vital High Protein at goal rate at 80ml/hr to meet 100% of est. nutrition need. Recommended changes of TF formula and rate was discussed with RN. SHANE 07/10. Will continue to monitor. Recommendations: 1.TF recs Vital High Protein at goal rate 80ml/hr;to provide 1920ml fluid,1920kcal,1613ml free water,and 168g protein. 2. Have addtional water flushes per MD due to CVVH. 3.daily wts; prealbumin / 5.Once extubated, advance diet as medically indicated to heart healthy Addendum: 07/13/19 at [address] Amended: Links added. Addendum: 07/13/19 at [address] I have reviewed and agree with note by Restaurant Worker. Nhi Haney RD
[2019-07-13] MEDS: midazolam 100mg in NS 100ml 100 ML IV SCH (14:25)
--- NOTE | 2019-07-13 15:47 | NUR ---
switched tube feeding type to vital hp per men's golf coach
--- NOTE | 2019-07-13 17:18 | NUR ---
Patients blood pressure spiked suddenly and CVVH was alarming high pressure in the venous line and then patients sats started dropping to 80s, RT at the bedside suctioning patient and got moderate amount of secretions while I assessed the chest tube. Dialysis nurse and recharger at the bedside unhooked venous dialysis line and removed multiple small clots and then hooked it back to the patient and restarted machine without further issues. STAT chest xray ordered which was unchanged from this morning. SPO2 probe changed out and patients BP also began normalizing once clots were removed. PAtient is now on 50 % FIO2 and VSS.
[2019-07-13 17:21] LABS: BASOPHILS % (AUTO) 0.2 % (0-1); EOSINOPHILS % (AUTO) 0 % (0-6); HEMATOCRIT 37.6 % (42.0-52.0); HEMOGLOBIN 12.3 g/dl (14.0-17.9); LYMPHOCYTES # (AUTO) 0.3 X10'3 (1.1-4.8); LYMPHOCYTES % (AUTO) 2.3 % (21-51); MEAN CORPUSCULAR HEMOGLOBIN 31.8 PG (27.0-31.0); MEAN CORPUSCULAR HGB CONC 32.8 g/dL (33.0-36.5); MEAN CORPUSCULAR VOLUME 97.1 FL (78-98); MEAN PLATELET VOLUME 9.5 FL (7.4-10.4); MONOCYTES # (AUTO) 0.8 X10'3 (0-0.9); NEUTROPHILS # (AUTO) 13.9 X10'3 (1.8-7.7); NEUTROPHILS % (AUTO) 92.5 % (42-75); PLATELET COUNT 230 X10'3 (140-440); RED BLOOD COUNT 3.87 X10'6 (4.70-6.10); RED CELL DISTRIBUTION WIDTH 14.5 % (11.5-14.5)
[2019-07-13 17:37] LABS: ALBUMIN 2.6 G/DL (3.4-5.0); ANION GAP 7 (8-16); BLOOD UREA NITROGEN 43 MG/DL (7-18); BUN/CREATININE RATIO 14.5 (5.4-32.0); CALCIUM 8.5 MG/DL (8.5-10.1); CHLORIDE 103 MMOL/L (99-107); CREATININE 2.97 MG/DL (0.60-1.10); GLUCOSE 187 MG/DL (70-104); MAGNESIUM 2.2 MG/DL (1.5-2.4); PHOSPHORUS 4.9 MG/DL (2.3-4.5); SODIUM 135 MMOL/L (135-145); TOTAL CARBON DIOXIDE 24.7 MMOL/L (24-32); eGFR 21 ML/MIN
--- NOTE | 2019-07-13 18:37 | NUR ---
Problems reprioritized. Patient report given, questions answered & plan of care reviewed with ZACH TURNER.
--- NOTE | 2019-07-13 18:45 | NUR ---
Patient in room CICU 2008. I have received report from Clarice TURNER, and had the opportunity to ask questions and assume patient care.
--- NOTE | 2019-07-13 19:30 | NUR ---
PT is intubated and mechanically vented, tolerating settings well. PT is resting with no s/s of distress noted at this time. VSS. PT is on CVVH and tolerating well, no pressors needed at this time. CT to RT chest, secured to PT with minimal serous drainage noted in tubing. TF is running @ 45ml/hr to OG, will increase to new goal rate as PT tolerates. Mon in place draining to gravity. Bed is locked and low. Bilat soft wrist restraints in place and secure. Will continue to monitor.
[2019-07-13] MEDS: insulin glargine (Lantus) pen - multi-dose SQ SCH (20:19)
[2019-07-13] MEDS: Duosol 4K/3 Ca (w/calcium) 5,000 ML HE SCH ×3 (20:36→20:38)
[2019-07-13 23:31] LABS: BASOPHILS # (AUTO) 0.1 X10'3 (0-0.2); BASOPHILS % (AUTO) 0.6 % (0-1); EOSINOPHILS % (AUTO) 0 % (0-6); HEMOGLOBIN 12.2 g/dl (14.0-17.9); LYMPHOCYTES # (AUTO) 0.1 X10'3 (1.1-4.8); LYMPHOCYTES % (AUTO) 0.5 % (21-51); MEAN CORPUSCULAR HEMOGLOBIN 31.9 PG (27.0-31.0); MEAN CORPUSCULAR VOLUME 96.7 FL (78-98); MEAN PLATELET VOLUME 9.2 FL (7.4-10.4); MONOCYTES # (AUTO) 1.5 X10'3 (0-0.9); MONOCYTES % (AUTO) 7.7 % (2-12); NEUTROPHILS # (AUTO) 17.8 X10'3 (1.8-7.7); NEUTROPHILS % (AUTO) 91.2 % (42-75); PLATELET COUNT 192 X10'3 (140-440); RED BLOOD COUNT 3.82 X10'6 (4.70-6.10); RED CELL DISTRIBUTION WIDTH 14.4 % (11.5-14.5); WHITE BLOOD COUNT 19.5 X10'3 (4.5-11.0)
[2019-07-13 23:44] LABS: ALBUMIN 2.4 G/DL (3.4-5.0); ANION GAP 6 (8-16); BLOOD UREA NITROGEN 41 MG/DL (7-18); CALCIUM 8.1 MG/DL (8.5-10.1); CHLORIDE 103 MMOL/L (99-107); CREATININE 2.73 MG/DL (0.60-1.10); GLUCOSE 164 MG/DL (70-104); PHOSPHORUS 5.3 MG/DL (2.3-4.5); POTASSIUM 5.6 MMOL/L (3.5-5.1); SODIUM 134 MMOL/L (135-145); TOTAL CARBON DIOXIDE 24.8 MMOL/L (24-32); eGFR 23 ML/MIN
[2019-07-14] VITALS (23 sets, daily range): BP systolic 100–149; BP diastolic 58–68
--- NOTE | 2019-07-14 00:25 | NUR ---
MILANA Cho notified and made aware of WBC, K and Phos trending up. Order received to add on a Procalcitonin with next set of labs and will continue to monitor lab values.
[2019-07-14] MEDS: methylPREDNISolone sod succ 125mg/2ml vial IV SCH ×4 (01:46→19:51)
[2019-07-14] MEDS: mineral oil/petrolatum ophthal oint EACHEYE SCH ×4 (01:47→19:52)
[2019-07-14] MEDS: insulin regular, human vial - multi-dose SQ SCH ×4 (02:07→20:04)
[2019-07-14] MEDS: ipratropium/albuterol 3ml nebule NEB SCH ×6 (02:56→23:20)
--- NOTE | 2019-07-14 03:45 | NUR ---
CVVH machine went down. NISSAN SALES CONSULTANT Marquis notified. body recall instructor Dialysis nurse called as well. Lines flushed. Will continue to monitor.
[2019-07-14 03:55] LABS: ABG BASE EXCESS -2.8 mmol/L (-2.0-3.0); ABG HCO3 20.8 mmol/L (22.0-26.0); ABG PH (T) 7.429 (7.350-7.450); ABG PO2 (T) 85.4 mmHg (83-108); FCOHb 0.3 % (0.5-1.5); FO2Hb 96.7 % (94-100); MINUTE VOLUME 16 L/min; PATIENT TEMPERATURE 36.6; PEEP 5 cm H2O; RESPIRATORY RATE 18 b/min; RESPIRATORY RATE (OBSERVED) 18 b/min; TOTAL HEMOGLOBIN 12.6 G/dl (14.0-17.9)
[2019-07-14] MEDS: Duosol 4K/3 Ca (w/calcium) 5,000 ML HE SCH ×7 (05:07→19:31)
[2019-07-14 05:11] LABS: BASOPHILS # (AUTO) 0.1 X10'3 (0-0.2); BASOPHILS % (AUTO) 0.6 % (0-1); EOSINOPHILS % (AUTO) 0.1 % (0-6); HEMATOCRIT 34.2 % (42.0-52.0); HEMOGLOBIN 11.3 g/dl (14.0-17.9); LYMPHOCYTES # (AUTO) 0.1 X10'3 (1.1-4.8); LYMPHOCYTES % (AUTO) 0.6 % (21-51); MEAN CORPUSCULAR HEMOGLOBIN 32.1 PG (27.0-31.0); MEAN CORPUSCULAR HGB CONC 33.1 g/dL (33.0-36.5); MEAN PLATELET VOLUME 9.3 FL (7.4-10.4); MONOCYTES # (AUTO) 1.8 X10'3 (0-0.9); MONOCYTES % (AUTO) 10.9 % (2-12); NEUTROPHILS # (AUTO) 14.1 X10'3 (1.8-7.7); NEUTROPHILS % (AUTO) 87.8 % (42-75); PLATELET COUNT 144 X10'3 (140-440); RED BLOOD COUNT 3.53 X10'6 (4.70-6.10); RED CELL DISTRIBUTION WIDTH 14.5 % (11.5-14.5)
[2019-07-14 05:31] LABS: PARTIAL THROMBOPLASTIN TIME 32 SECONDS (22-32)
[2019-07-14 05:45] LABS: ALBUMIN 2.2 G/DL (3.4-5.0); ALBUMIN/GLOBULIN RATIO 0.7 (1.1-1.5); ALKALINE PHOSPHATASE 155 IU/L (46-116); ANION GAP 9 (8-16); BILIRUBIN,TOTAL 0.8 MG/DL (0.1-1.0); BLOOD UREA NITROGEN 47 MG/DL (7-18); BUN/CREATININE RATIO 16.4 (5.4-32.0); CALCIUM 8.5 MG/DL (8.5-10.1); CHLORIDE 103 MMOL/L (99-107); CREATININE 2.87 MG/DL (0.60-1.10); GLUCOSE 182 MG/DL (70-104); PHOSPHORUS 3.5 MG/DL (2.3-4.5); POTASSIUM 5.1 MMOL/L (3.5-5.1); SODIUM 134 MMOL/L (135-145); TOTAL CARBON DIOXIDE 22.5 MMOL/L (24-32); TOTAL PROTEIN 5.5 G/DL (6.4-8.2); eGFR 22 ML/MIN
--- NOTE | 2019-07-14 06:39 | NUR ---
Problems reprioritized. Patient report given, questions answered & plan of care reviewed with Samantha TURNER.
--- NOTE | 2019-07-14 06:39 | NUR ---
Patient in room CICU 2008. I have received report from Paulino TURNER and had the opportunity to ask questions and assume patient care.
[2019-07-14 07:07] LABS: ALANINE AMINOTRANSFERASE 3987 U/L (12-78); ASPARTATE AMINO TRANSFERASE 1278 U/L (10-37)
[2019-07-14] MEDS: aspirin 81mg tablet.DR PO SCH (07:41)
[2019-07-14] MEDS: pantoprazole 40mg Tablet.DR PO SCH (07:41)
[2019-07-14] MEDS: lactobacillus rhamnosus 10,000 MMU CELLS/CAPSULE PO SCH ×2 (07:41→19:52)
[2019-07-14] MEDS: loratadine 10mg tablet PO SCH (07:41)
[2019-07-14] MEDS: multivitamins, therapeutics tablet PO SCH (07:42)
[2019-07-14] MEDS: CefTRIAXone/D5W-Rocephin 1gm 50 ML IV SCH (07:42)
[2019-07-14] MEDS: atorvastatin 20mg tablet PO SCH (07:42)
[2019-07-14] MEDS: levoFLOXACIN-Levaquin 250mg/D5 50 ML IV SCH (07:42)
[2019-07-14] MEDS: cyanocobalamin 500mcg tablet PO SCH (07:42)
[2019-07-14] MEDS: enoxaparin 30mg/0.3ml syringe SUBCUT SCH (07:44)
[2019-07-14] MEDS: furosemide 20 MG/2 ML vial IV SCH ×2 (07:49→19:51)
[2019-07-14] MEDS: amLODIPine 5mg tablet PO SCH (08:00)
[2019-07-14] MEDS: MVI, adult No.4 with vit. K 10 ML in dextrose 5% water 500ml 500 ML IV SCH ×2 (08:17)
[2019-07-14] MEDS: thiamine inj. 100 MG, folic acid inj. 2 MG in normal saline 100ml IV soln 100 ML IV SCH (08:56)
--- NOTE | 2019-07-14 09:00 | NUR ---
All sedation stopped per Dr. Lagunas to see how patient tolerates awakening.
[2019-07-14 11:35] LABS: BASOPHILS # (AUTO) 0.1 X10'3 (0-0.2); BASOPHILS % (AUTO) 1.1 % (0-1); EOSINOPHILS % (AUTO) 0 % (0-6); HEMATOCRIT 33.1 % (42.0-52.0); LYMPHOCYTES # (AUTO) 0.1 X10'3 (1.1-4.8); MEAN CORPUSCULAR HGB CONC 33.2 g/dL (33.0-36.5); MEAN CORPUSCULAR VOLUME 96.4 FL (78-98); MEAN PLATELET VOLUME 9.4 FL (7.4-10.4); MONOCYTES # (AUTO) 1.2 X10'3 (0-0.9); MONOCYTES % (AUTO) 8.5 % (2-12); NEUTROPHILS # (AUTO) 12.4 X10'3 (1.8-7.7); NEUTROPHILS % (AUTO) 89.4 % (42-75); PLATELET COUNT 137 X10'3 (140-440); RED BLOOD COUNT 3.44 X10'6 (4.70-6.10); RED CELL DISTRIBUTION WIDTH 14.6 % (11.5-14.5); WHITE BLOOD COUNT 13.9 X10'3 (4.5-11.0)
[2019-07-14] MEDS: diltiazem-NS 100mg/100ml 100 ML IV SCH ×2 (11:47→23:15)
[2019-07-14 11:50] LABS: ALBUMIN 2.1 G/DL (3.4-5.0); ANION GAP 8 (8-16); BLOOD UREA NITROGEN 49 MG/DL (7-18); BUN/CREATININE RATIO 18.8 (5.4-32.0); CALCIUM 7.9 MG/DL (8.5-10.1); CHLORIDE 102 MMOL/L (99-107); GLUCOSE 231 MG/DL (70-104); MAGNESIUM 1.8 MG/DL (1.5-2.4); PHOSPHORUS 2.8 MG/DL (2.3-4.5); POTASSIUM 4.6 MMOL/L (3.5-5.1); SODIUM 134 MMOL/L (135-145); TOTAL CARBON DIOXIDE 24.4 MMOL/L (24-32); eGFR 24 ML/MIN
[2019-07-14 11:57] LABS: TOTAL PROTEIN,URINE RANDOM 69.2 MG/DL
--- NOTE | 2019-07-14 12:00 | NUR ---
Attempted to put patient on spontaneous, patient was unable to generate a spontaneous breath at this time; will attempt again once sedation has been off longer.
[2019-07-14 17:29] LABS: HEMOGLOBIN 11.2 g/dl (14.0-17.9); LYMPHOCYTES # (AUTO) 0.1 X10'3 (1.1-4.8); MONOCYTES # (AUTO) 1.4 X10'3 (0-0.9)
[2019-07-14 17:31] LABS: BASOPHILS # (AUTO) 0.1 X10'3 (0-0.2); BASOPHILS % (AUTO) 0.5 % (0-1); EOSINOPHILS % (AUTO) 0.2 % (0-6); HEMATOCRIT 33.3 % (42.0-52.0); LYMPHOCYTES % (AUTO) 0.8 % (21-51); MEAN CORPUSCULAR HEMOGLOBIN 32.2 PG (27.0-31.0); MEAN CORPUSCULAR HGB CONC 33.5 g/dL (33.0-36.5); MEAN CORPUSCULAR VOLUME 96.1 FL (78-98); MEAN PLATELET VOLUME 9.2 FL (7.4-10.4); MONOCYTES % (AUTO) 9.6 % (2-12); NEUTROPHILS # (AUTO) 13.1 X10'3 (1.8-7.7); NEUTROPHILS % (AUTO) 88.9 % (42-75); PLATELET COUNT 140 X10'3 (140-440); RED BLOOD COUNT 3.47 X10'6 (4.70-6.10); RED CELL DISTRIBUTION WIDTH 14.5 % (11.5-14.5); WHITE BLOOD COUNT 14.8 X10'3 (4.5-11.0)
[2019-07-14 17:41] LABS: ALBUMIN 2.1 G/DL (3.4-5.0); ANION GAP 9 (8-16); BLOOD UREA NITROGEN 48 MG/DL (7-18); BUN/CREATININE RATIO 20.3 (5.4-32.0); CHLORIDE 102 MMOL/L (99-107); CREATININE 2.37 MG/DL (0.60-1.10); GLUCOSE 176 MG/DL (70-104); MAGNESIUM 1.8 MG/DL (1.5-2.4); PHOSPHORUS 2.5 MG/DL (2.3-4.5); POTASSIUM 4.6 MMOL/L (3.5-5.1); SODIUM 136 MMOL/L (135-145); TOTAL CARBON DIOXIDE 24.9 MMOL/L (24-32); eGFR 27 ML/MIN
--- NOTE | 2019-07-14 18:25 | NUR ---
Patient in room CICU 2008. I have received report from Samantha TURNER and had the opportunity to ask questions and assume patient care.
[2019-07-14] MEDS: insulin glargine (Lantus) pen - multi-dose SQ SCH (20:06)
[2019-07-15] VITALS (27 sets, daily range): BP systolic 91–180; BP diastolic 46–81
[2019-07-15] MEDS: diltiazem-NS 100mg/100ml 100 ML IV SCH (00:04)
[2019-07-15 00:29] LABS: BASOPHILS # (AUTO) 0.4 X10'3 (0-0.2); BASOPHILS % (AUTO) 1.4 % (0-1); EOSINOPHILS % (AUTO) 0 % (0-6); HEMATOCRIT 37.3 % (42.0-52.0); HEMOGLOBIN 12.1 g/dl (14.0-17.9); LYMPHOCYTES # (AUTO) 0.1 X10'3 (1.1-4.8); LYMPHOCYTES % (AUTO) 0.5 % (21-51); MEAN CORPUSCULAR HEMOGLOBIN 31.6 PG (27.0-31.0); MEAN CORPUSCULAR HGB CONC 32.5 g/dL (33.0-36.5); MEAN CORPUSCULAR VOLUME 97.3 FL (78-98); MEAN PLATELET VOLUME 9.6 FL (7.4-10.4); MONOCYTES # (AUTO) 1.9 X10'3 (0-0.9); MONOCYTES % (AUTO) 7.4 % (2-12); NEUTROPHILS # (AUTO) 23.8 X10'3 (1.8-7.7); NEUTROPHILS % (AUTO) 90.7 % (42-75); PLATELET COUNT 180 X10'3 (140-440); RED BLOOD COUNT 3.83 X10'6 (4.70-6.10); RED CELL DISTRIBUTION WIDTH 14.7 % (11.5-14.5)
[2019-07-15 00:34] LABS: WHITE BLOOD COUNT 26.2 X10'3 (4.5-11.0)
--- NOTE | 2019-07-15 00:37 | NUR ---
cardizem was restarted around 0000. pt HR has been slowly increasing all shift, and is now 110's and occasionally 120's. mostly sinus at this time, but frequent PAC's as well.
[2019-07-15 00:38] LABS: ALBUMIN 2.4 G/DL (3.4-5.0); ANION GAP 5 (8-16); BLOOD UREA NITROGEN 49 MG/DL (7-18); BUN/CREATININE RATIO 20.2 (5.4-32.0); CALCIUM 8.5 MG/DL (8.5-10.1); CHLORIDE 102 MMOL/L (99-107); CREATININE 2.42 MG/DL (0.60-1.10); GLUCOSE 174 MG/DL (70-104); MAGNESIUM 1.9 MG/DL (1.5-2.4); PHOSPHORUS 4.3 MG/DL (2.3-4.5); POTASSIUM 5.2 MMOL/L (3.5-5.1); SODIUM 134 MMOL/L (135-145); TOTAL CARBON DIOXIDE 27.1 MMOL/L (24-32); eGFR 26 ML/MIN
[2019-07-15 00:55] LABS: PLATELET ESTIMATE NORMAL; TOTAL CELLS COUNTED 100
[2019-07-15 00:56] LABS: LARGE PLATELETS FEW
[2019-07-15] MEDS: methylPREDNISolone sod succ 125mg/2ml vial IV SCH ×2 (01:52→08:29)
[2019-07-15] MEDS: mineral oil/petrolatum ophthal oint EACHEYE SCH ×4 (01:52→19:36)
[2019-07-15] MEDS: insulin regular, human vial - multi-dose SQ SCH ×4 (01:57→19:39)
[2019-07-15] MEDS: ipratropium/albuterol 3ml nebule NEB SCH ×6 (02:42→23:34)
[2019-07-15 02:56] LABS: ABG BASE EXCESS -2.7 mmol/L (-2.0-3.0); ABG HCO3 24.4 mmol/L (22.0-26.0); ABG OXYGEN SATURATION 90.1 % (95-98); ABG PCO2 (T) 51.1 mmHg (35.0-45.0); ABG PH (T) 7.295 (7.350-7.450); ABG PO2 (T) 60.2 mmHg (83-108); FCOHb 0.1 % (0.5-1.5); FMetHb 0.1 % (0.3-1.12); FO2Hb 89.9 % (94-100); MINUTE VOLUME 10 L/min; PATIENT TEMPERATURE 36.7; PEEP 5 cm H2O; RESPIRATORY RATE 16 b/min; RESPIRATORY RATE (OBSERVED) 16 b/min; TOTAL HEMOGLOBIN 13.2 G/dl (14.0-17.9)
[2019-07-15 04:16] LABS: CLARITY,URINE CLOUDY (Clear); COLOR,URINE YELLOW (Yellow); GLUCOSE, URINE 100 mg/dl (Neg); KETONES,URINE NEGATIVE (Neg); LEUKOCYTE ESTERASE ,URINE SMALL (Neg); NITRITES, URINE NEGATIVE (Neg); OCCULT BLOOD,URINE LARGE (Neg); PROTEIN,URINE 30 mg/dl (Neg); UROBILINOGEN,URINE 0.2 E.U/dL (0.2-1.0)
[2019-07-15 04:27] LABS: UA COLLECTION TYPE FOLEY CATH
[2019-07-15 04:28] LABS: BACTERIA,URINE FEW /HPF (Neg); SQUAMOUS EPITHELIAL CELL,UR FEW /LPF (FEW); WBC,URINE 0-4 /HPF (0-4)
[2019-07-15 04:29] LABS: AMORPHOUS URATES 1+; MUCUS STRANDS FEW /LPF (Neg)
[2019-07-15 05:51] LABS: BASOPHILS % (AUTO) 0.2 % (0-1); EOSINOPHILS % (AUTO) 0 % (0-6); HEMATOCRIT 33.7 % (42.0-52.0); HEMOGLOBIN 11.1 g/dl (14.0-17.9); LYMPHOCYTES # (AUTO) 0.1 X10'3 (1.1-4.8); LYMPHOCYTES % (AUTO) 0.7 % (21-51); MEAN CORPUSCULAR HGB CONC 32.9 g/dL (33.0-36.5); MEAN CORPUSCULAR VOLUME 97.2 FL (78-98); MEAN PLATELET VOLUME 10.2 FL (7.4-10.4); MONOCYTES # (AUTO) 1.7 X10'3 (0-0.9); MONOCYTES % (AUTO) 8.9 % (2-12); NEUTROPHILS # (AUTO) 16.9 X10'3 (1.8-7.7); NEUTROPHILS % (AUTO) 90.2 % (42-75); PLATELET COUNT 147 X10'3 (140-440); RED BLOOD COUNT 3.47 X10'6 (4.70-6.10); RED CELL DISTRIBUTION WIDTH 14.5 % (11.5-14.5); WHITE BLOOD COUNT 18.7 X10'3 (4.5-11.0)
[2019-07-15 06:06] LABS: PARTIAL THROMBOPLASTIN TIME 26 SECONDS (22-32)
--- NOTE | 2019-07-15 06:22 | NUR ---
Problems reprioritized. Patient report given, questions answered & plan of care reviewed with Carla TURNER.
[2019-07-15 06:24] LABS: ALBUMIN 2.1 G/DL (3.4-5.0); ALBUMIN/GLOBULIN RATIO 0.6 (1.1-1.5); ALKALINE PHOSPHATASE 155 IU/L (46-116); ANION GAP 8 (8-16); ASPARTATE AMINO TRANSFERASE 472 U/L (10-37); BILIRUBIN,TOTAL 0.7 MG/DL (0.1-1.0); BLOOD UREA NITROGEN 54 MG/DL (7-18); CALCIUM 8.4 MG/DL (8.5-10.1); CHLORIDE 103 MMOL/L (99-107); CREATININE 2.25 MG/DL (0.60-1.10); GLUCOSE 201 MG/DL (70-104); SODIUM 135 MMOL/L (135-145); TOTAL CARBON DIOXIDE 23.8 MMOL/L (24-32); TOTAL PROTEIN 5.6 G/DL (6.4-8.2); eGFR 29 ML/MIN
[2019-07-15 06:40] LABS: ALANINE AMINOTRANSFERASE 2494 U/L (12-78)
[2019-07-15 06:46] LABS: MAGNESIUM 1.8 MG/DL (1.5-2.4); PHOSPHORUS 2.7 MG/DL (2.3-4.5)
[2019-07-15] MEDS: levoFLOXACIN-Levaquin 250mg/D5 50 ML IV SCH (07:29)
[2019-07-15] MEDS: loratadine 10mg tablet PO SCH (08:21)
[2019-07-15] MEDS: thiamine 100mg tablet PO SCH (08:21)
[2019-07-15] MEDS: atorvastatin 20mg tablet PO SCH (08:21)
[2019-07-15] MEDS: cyanocobalamin 500mcg tablet PO SCH (08:21)
[2019-07-15] MEDS: folic acid 1mg tablet PO SCH (08:21)
[2019-07-15] MEDS: aspirin 81mg tablet.DR PO SCH (08:22)
[2019-07-15] MEDS: lactobacillus rhamnosus 10,000 MMU CELLS/CAPSULE PO SCH ×2 (08:22→19:36)
[2019-07-15] MEDS: multivitamins, therapeutics tablet PO SCH (08:22)
[2019-07-15] MEDS: pantoprazole 40 MG vial IV SCH (08:29)
[2019-07-15] MEDS: CefTRIAXone/D5W-Rocephin 1gm 50 ML IV SCH (08:29)
[2019-07-15] MEDS: amLODIPine 5mg tablet PO SCH (09:38)
[2019-07-15] MEDS: enoxaparin 30mg/0.3ml syringe SUBCUT SCH (12:50)
[2019-07-15] MEDS: lactulose 20gm/30ml cup PO SCH ×2 (12:50→19:36)
[2019-07-15] MEDS ORDERED: cloNIDine 0.1 mg tablet PO PRN (14:00)
[2019-07-15] MEDS ORDERED: LORazepam 2 mg/ml vial ONE (14:00)
[2019-07-15] MEDS ORDERED: LORazepam 2 mg/ml vial IV PRN (14:00)
[2019-07-15] MEDS ORDERED: haloperidol lactate 5mg/ml inj IM PRN (14:00)
[2019-07-15] MEDS: LORazepam 2 mg/ml vial IV PRN ×2 (14:17→23:26)
[2019-07-15] MEDS: diltiazem 30mg tablet PO SCH ×2 (14:29→19:36)
--- NOTE | 2019-07-15 14:34 | NUR ---
placed on AC/VC started bucking vent, SBP to 190 HR to 140 SVT placed on cpap tolerated better but still hypertensive and tachycardic. dr lira notified and updated, ordered severe ETOH withdrawl protocol. family at bedside and updated
[2019-07-15 14:53] LABS: BASOPHILS % (AUTO) 0 % (0-1); EOSINOPHILS % (AUTO) 0 % (0-6); HEMOGLOBIN 12.2 g/dl (14.0-17.9); LYMPHOCYTES # (AUTO) 0.1 X10'3 (1.1-4.8); LYMPHOCYTES % (AUTO) 0.6 % (21-51); MEAN CORPUSCULAR HEMOGLOBIN 31.7 PG (27.0-31.0); MEAN PLATELET VOLUME 9.6 FL (7.4-10.4); MONOCYTES # (AUTO) 2.1 X10'3 (0-0.9); MONOCYTES % (AUTO) 9.6 % (2-12); NEUTROPHILS % (AUTO) 89.8 % (42-75); PLATELET COUNT 179 X10'3 (140-440); RED BLOOD COUNT 3.85 X10'6 (4.70-6.10); RED CELL DISTRIBUTION WIDTH 14.7 % (11.5-14.5); WHITE BLOOD COUNT 22.3 X10'3 (4.5-11.0)
[2019-07-15] MEDS ORDERED: metoprolol tartrate 1mg/ml inj IV ONE (14:53)
[2019-07-15] MEDS: metoprolol tartrate 1mg/ml inj IV SCH ×3 (14:57→15:20)
--- NOTE | 2019-07-15 15:01 | NUR ---
HR cont to be in 150s after Ativan and SBP now to 150s. Evelia Hart at bedside ordered lopressor
[2019-07-15 15:05] LABS: ALBUMIN 2.4 G/DL (3.4-5.0); ANION GAP 8 (8-16); BLOOD UREA NITROGEN 58 MG/DL (7-18); BUN/CREATININE RATIO 27.1 (5.4-32.0); CALCIUM 8.3 MG/DL (8.5-10.1); CHLORIDE 102 MMOL/L (99-107); CREATININE 2.14 MG/DL (0.60-1.10); GLUCOSE 196 MG/DL (70-104); MAGNESIUM 1.8 MG/DL (1.5-2.4); PHOSPHORUS 3.1 MG/DL (2.3-4.5); POTASSIUM 4.9 MMOL/L (3.5-5.1); SODIUM 137 MMOL/L (135-145); TOTAL CARBON DIOXIDE 27.1 MMOL/L (24-32); eGFR 30 ML/MIN
[2019-07-15 15:21] LABS: ABG BASE EXCESS -1.2 mmol/L (-2.0-3.0); ABG HCO3 25.3 mmol/L (22.0-26.0); ABG OXYGEN SATURATION 95.8 % (95-98); ABG PCO2 (T) 49.9 mmHg (35.0-45.0); ABG PH (T) 7.323 (7.350-7.450); ABG PO2 (T) 89.4 mmHg (83-108); FCOHb 0.3 % (0.5-1.5); FMetHb 0.1 % (0.3-1.12); FO2Hb 95.4 % (94-100); PEEP 5 cm H2O
[2019-07-15] MEDS: atenolol 50mg tablet PO SCH (17:16)
--- NOTE | 2019-07-15 18:19 | NUR ---
Patient in room CICU 2008. I have received report from Carla TURNER and had the opportunity to ask questions and assume patient care.
[2019-07-15] MEDS: insulin glargine (Lantus) pen - multi-dose SQ SCH (19:40)
[2019-07-15 19:44] LABS: BASOPHILS % (AUTO) 0.2 % (0-1); EOSINOPHILS % (AUTO) 0 % (0-6); HEMATOCRIT 36.1 % (42.0-52.0); HEMOGLOBIN 11.8 g/dl (14.0-17.9); LYMPHOCYTES # (AUTO) 0.2 X10'3 (1.1-4.8); LYMPHOCYTES % (AUTO) 0.7 % (21-51); MEAN CORPUSCULAR HEMOGLOBIN 31.7 PG (27.0-31.0); MEAN CORPUSCULAR HGB CONC 32.7 g/dL (33.0-36.5); MEAN CORPUSCULAR VOLUME 96.8 FL (78-98); MEAN PLATELET VOLUME 10.2 FL (7.4-10.4); MONOCYTES # (AUTO) 2.4 X10'3 (0-0.9); MONOCYTES % (AUTO) 9.8 % (2-12); NEUTROPHILS # (AUTO) 21.4 X10'3 (1.8-7.7); NEUTROPHILS % (AUTO) 89.3 % (42-75); PLATELET COUNT 178 X10'3 (140-440); RED BLOOD COUNT 3.73 X10'6 (4.70-6.10); RED CELL DISTRIBUTION WIDTH 14.9 % (11.5-14.5)
[2019-07-15 19:51] LABS: ALBUMIN 2.3 G/DL (3.4-5.0); ANION GAP 10 (8-16); BLOOD UREA NITROGEN 56 MG/DL (7-18); BUN/CREATININE RATIO 27.2 (5.4-32.0); CHLORIDE 103 MMOL/L (99-107); CREATININE 2.06 MG/DL (0.60-1.10); GLUCOSE 198 MG/DL (70-104); MAGNESIUM 1.9 MG/DL (1.5-2.4); PHOSPHORUS 4.6 MG/DL (2.3-4.5); POTASSIUM 5.3 MMOL/L (3.5-5.1); SODIUM 137 MMOL/L (135-145); eGFR 32 ML/MIN
[2019-07-15 20:38] LABS: PLATELET ESTIMATE NORMAL; TOTAL CELLS COUNTED 100
--- NOTE | 2019-07-15 21:34 | NUR ---
September ADVANCED PRACTICE NURSE PSYCHOTHERAPIST was present at this time and we discussed the CVVH filter change happening in 30 minutes. September spoke with supervisor shuttle fitting as well. plan is to keep CVVH running through the night if possible, even though the filter is going to . i called Pharmacy to request new bags. continue to monitor.
[2019-07-15 22:40] LABS: ABG BASE EXCESS -3.7 mmol/L (-2.0-3.0); ABG HCO3 23.7 mmol/L (22.0-26.0); ABG OXYGEN SATURATION 95.1 % (95-98); ABG PCO2 (T) 51.2 mmHg (35.0-45.0); ABG PO2 (T) 77.8 mmHg (83-108); FCOHb 0.1 % (0.5-1.5); MINUTE VOLUME 8 L/min; PATIENT TEMPERATURE 36.3; PEEP 5 cm H2O; RESPIRATORY RATE (OBSERVED) 8 b/min; TOTAL HEMOGLOBIN 12.9 G/dl (14.0-17.9)
[2019-07-15] MEDS: Duosol 4K/3 Ca (w/calcium) 5,000 ML HE SCH ×3 (23:26→23:28)
[2019-07-16] VITALS (24 sets, daily range): BP systolic 97–145; BP diastolic 45–75
[2019-07-16] MEDS: mineral oil/petrolatum ophthal oint EACHEYE SCH ×4 (01:51→19:48)
[2019-07-16] MEDS: diltiazem 30mg tablet PO SCH ×3 (01:51→14:00)
[2019-07-16] MEDS: insulin regular, human vial - multi-dose SQ SCH ×4 (02:00→20:02)
[2019-07-16] MEDS: ipratropium/albuterol 3ml nebule NEB SCH ×6 (02:49→23:24)
[2019-07-16 03:06] LABS: ABG BASE EXCESS -2.7 mmol/L (-2.0-3.0); ABG HCO3 23.3 mmol/L (22.0-26.0); ABG OXYGEN SATURATION 96.3 % (95-98); ABG PCO2 (T) 44.6 mmHg (35.0-45.0); ABG PH (T) 7.335 (7.350-7.450); ABG PO2 (T) 83.9 mmHg (83-108); FCOHb 0.2 % (0.5-1.5); FMetHb 0.1 % (0.3-1.12); MINUTE VOLUME 9 L/min; PATIENT TEMPERATURE 36.6; PEEP 5 cm H2O; RESPIRATORY RATE 18 b/min; RESPIRATORY RATE (OBSERVED) 18 b/min; TIDAL VOLUME 500 mL; TOTAL HEMOGLOBIN 12.7 G/dl (14.0-17.9)
[2019-07-16 04:07] LABS: BASOPHILS # (AUTO) 0.1 X10'3 (0-0.2); BASOPHILS % (AUTO) 0.3 % (0-1); EOSINOPHILS % (AUTO) 0 % (0-6); HEMATOCRIT 35.9 % (42.0-52.0); HEMOGLOBIN 11.7 g/dl (14.0-17.9); LYMPHOCYTES # (AUTO) 0.2 X10'3 (1.1-4.8); LYMPHOCYTES % (AUTO) 0.6 % (21-51); MEAN CORPUSCULAR HEMOGLOBIN 31.6 PG (27.0-31.0); MEAN CORPUSCULAR HGB CONC 32.6 g/dL (33.0-36.5); MEAN PLATELET VOLUME 10.1 FL (7.4-10.4); MONOCYTES # (AUTO) 2.5 X10'3 (0-0.9); MONOCYTES % (AUTO) 9.6 % (2-12); NEUTROPHILS # (AUTO) 23.1 X10'3 (1.8-7.7); NEUTROPHILS % (AUTO) 89.5 % (42-75); PLATELET COUNT 176 X10'3 (140-440); RED CELL DISTRIBUTION WIDTH 14.9 % (11.5-14.5)
[2019-07-16 04:11] LABS: WHITE BLOOD COUNT 25.8 X10'3 (4.5-11.0)
[2019-07-16 04:23] LABS: ALBUMIN 2.3 G/DL (3.4-5.0); ALBUMIN/GLOBULIN RATIO 0.6 (1.1-1.5); ALKALINE PHOSPHATASE 180 IU/L (46-116); ANION GAP 10 (8-16); ASPARTATE AMINO TRANSFERASE 377 U/L (10-37); BILIRUBIN,TOTAL 0.5 MG/DL (0.1-1.0); BLOOD UREA NITROGEN 58 MG/DL (7-18); BUN/CREATININE RATIO 28.4 (5.4-32.0); CALCIUM 8.2 MG/DL (8.5-10.1); CHLORIDE 102 MMOL/L (99-107); CREATININE 2.04 MG/DL (0.60-1.10); GLUCOSE 208 MG/DL (70-104); MAGNESIUM 1.8 MG/DL (1.5-2.4); PARTIAL THROMBOPLASTIN TIME 25 SECONDS (22-32); PHOSPHORUS 3.9 MG/DL (2.3-4.5); POTASSIUM 4.8 MMOL/L (3.5-5.1); PREALBUMIN 25.2 MG/DL (19-36); SODIUM 136 MMOL/L (135-145); TOTAL CARBON DIOXIDE 24.1 MMOL/L (24-32); TOTAL PROTEIN 6.2 G/DL (6.4-8.2); eGFR 32 ML/MIN
[2019-07-16 04:25] LABS: ALANINE AMINOTRANSFERASE 2024 U/L (12-78)
[2019-07-16 04:43] LABS: TOTAL CELLS COUNTED 100
[2019-07-16 04:44] LABS: PLATELET ESTIMATE NORMAL; POLYCHROMASIA FEW
[2019-07-16] MEDS: Duosol 4K/3 Ca (w/calcium) 5,000 ML HE SCH ×2 (06:08→06:09)
--- NOTE | 2019-07-16 06:23 | NUR ---
Problems reprioritized. Patient report given, questions answered & plan of care reviewed with Anna TURNER.
[2019-07-16] MEDS: lactulose 20gm/30ml cup PO SCH ×2 (06:59→19:47)
[2019-07-16] MEDS: enoxaparin 30mg/0.3ml syringe SUBCUT SCH (07:00)
[2019-07-16] MEDS: thiamine 100mg tablet PO SCH (07:20)
[2019-07-16] MEDS: cyanocobalamin 500mcg tablet PO SCH (07:20)
[2019-07-16] MEDS: multivitamins, therapeutics tablet PO SCH (07:20)
[2019-07-16] MEDS: pantoprazole 40 MG vial IV SCH (07:20)
[2019-07-16] MEDS: loratadine 10mg tablet PO SCH (07:21)
[2019-07-16] MEDS: atorvastatin 20mg tablet PO SCH (07:21)
[2019-07-16] MEDS: amLODIPine 5mg tablet PO SCH (07:21)
[2019-07-16] MEDS: atenolol 50mg tablet PO SCH (07:22)
[2019-07-16] MEDS: aspirin 81mg tablet.DR PO SCH (07:22)
[2019-07-16] MEDS: folic acid 1mg tablet PO SCH (07:22)
[2019-07-16] MEDS: lactobacillus rhamnosus 10,000 MMU CELLS/CAPSULE PO SCH ×2 (07:22→19:47)
[2019-07-16] MEDS: LORazepam 2 mg/ml vial IV SCH ×3 (12:23→19:47)
[2019-07-16] MEDS: midazolam 100mg in NS 100ml 100 ML IV SCH (12:26)
--- NOTE | 2019-07-16 13:10 | NUR ---
F/U (07/16): Pt is still currently on ventilator and CVVH, responsive, however agitated per bedside RN. Pt has slowly improved lab values per bedside RN. Pt is tolerating TF well with GRV WNL. Temporary change TF formula to Glucerna at goal rate of 80ml/hr due to lack on Vital High Protein in stock. LBM 07/15. Will continue to monitor. Recommendations: 1.TF recs Vital High Protein at goal rate 80ml/hr;to provide 1920ml fluid,1920kcal,1613ml free water,and 168g protein. 2.If out of Vital High Protein, use Glucerna at goal rate of 80ml/hr. 3. Have addtional water flushes per MD due to CVVH. 4.daily wts; prealbumin qM/ 5.Once extubated, advance diet as medically indicated to heart healthy Addendum: 07/16/19 at [address] Amended: Links added. Addendum: 07/16/19 at [address] MAK Cronin
[2019-07-16] MEDS: morphine 2 MG/ML inj. syringe IV PRN ×2 (13:14→17:57)
[2019-07-16] MEDS ORDERED: heparin 1,000 units/ml 10ml inj HE ONE ×2 (13:35)
[2019-07-16] MEDS: diltiazem-NS 100mg/100ml 100 ML IV SCH ×2 (14:45→19:31)
[2019-07-16] MEDS: ketorolac trometh. 30mg/ml inj. IM PRN (17:55)
--- NOTE | 2019-07-16 18:38 | NUR ---
Recieved patient report from Emy TURNER. daughter Fatou at bedside
[2019-07-16] MEDS: insulin glargine (Lantus) pen - multi-dose SQ SCH (20:01)
[2019-07-17] VITALS (23 sets, daily range): BP systolic 92–146; BP diastolic 44–69
[2019-07-17] MEDS: LORazepam 2 mg/ml vial IV SCH ×5 (00:15→20:00)
[2019-07-17 01:50] LABS: BASOPHILS # (AUTO) 0.1 X10'3 (0-0.2); BASOPHILS % (AUTO) 0.2 % (0-1); EOSINOPHILS # (AUTO) 0.2 X10'3 (0-0.9); EOSINOPHILS % (AUTO) 0.9 % (0-6); HEMATOCRIT 36.3 % (42.0-52.0); HEMOGLOBIN 11.6 g/dl (14.0-17.9); LYMPHOCYTES # (AUTO) 0.6 X10'3 (1.1-4.8); LYMPHOCYTES % (AUTO) 2.1 % (21-51); MEAN CORPUSCULAR HEMOGLOBIN 30.8 PG (27.0-31.0); MEAN CORPUSCULAR HGB CONC 31.9 g/dL (33.0-36.5); MEAN CORPUSCULAR VOLUME 96.4 FL (78-98); MEAN PLATELET VOLUME 10.1 FL (7.4-10.4); MONOCYTES # (AUTO) 3.6 X10'3 (0-0.9); NEUTROPHILS # (AUTO) 23.4 X10'3 (1.8-7.7); NEUTROPHILS % (AUTO) 83.8 % (42-75); PLATELET COUNT 183 X10'3 (140-440); RED BLOOD COUNT 3.76 X10'6 (4.70-6.10); RED CELL DISTRIBUTION WIDTH 14.9 % (11.5-14.5)
[2019-07-17 01:53] LABS: WHITE BLOOD COUNT 27.9 X10'3 (4.5-11.0)
[2019-07-17 01:57] LABS: PARTIAL THROMBOPLASTIN TIME 26 SECONDS (22-32)
[2019-07-17 02:06] LABS: ALBUMIN 2.1 G/DL (3.4-5.0); ALBUMIN/GLOBULIN RATIO 0.5 (1.1-1.5); ALKALINE PHOSPHATASE 178 IU/L (46-116); ANION GAP 11 (8-16); ASPARTATE AMINO TRANSFERASE 175 U/L (10-37); BILIRUBIN,TOTAL 0.5 MG/DL (0.1-1.0); BLOOD UREA NITROGEN 95 MG/DL (7-18); BUN/CREATININE RATIO 29.1 (5.4-32.0); CHLORIDE 103 MMOL/L (99-107); CREATININE 3.27 MG/DL (0.60-1.10); GLUCOSE 163 MG/DL (70-104); POTASSIUM 5.7 MMOL/L (3.5-5.1); SODIUM 136 MMOL/L (135-145); TOTAL CARBON DIOXIDE 22.3 MMOL/L (24-32); TOTAL PROTEIN 6.1 G/DL (6.4-8.2); eGFR 19 ML/MIN
[2019-07-17 02:11] LABS: ALANINE AMINOTRANSFERASE 1277 U/L (12-78)
[2019-07-17] MEDS: insulin regular, human vial - multi-dose SQ SCH ×3 (02:21→20:36)
[2019-07-17] MEDS: mineral oil/petrolatum ophthal oint EACHEYE SCH ×4 (02:28→20:30)
[2019-07-17 03:10] LABS: PLATELET ESTIMATE NORMAL; TOTAL CELLS COUNTED 100
[2019-07-17 03:11] LABS: POLYCHROMASIA FEW
[2019-07-17] MEDS: ipratropium/albuterol 3ml nebule NEB SCH ×6 (03:41→23:03)
[2019-07-17 03:51] LABS: ABG BASE EXCESS -5.3 mmol/L (-2.0-3.0); ABG HCO3 19.3 mmol/L (22.0-26.0); ABG OXYGEN SATURATION 94.4 % (95-98); ABG PCO2 (T) 36.2 mmHg (35.0-45.0); ABG PH (T) 7.349 (7.350-7.450); ABG PO2 (T) 79.1 mmHg (83-108); FCOHb 0.2 % (0.5-1.5); FO2Hb 94.2 % (94-100); MINUTE VOLUME 12 L/min; PATIENT TEMPERATURE 38.1; PEEP 5 cm H2O; RESPIRATORY RATE 14 b/min; RESPIRATORY RATE (OBSERVED) 22 b/min; TIDAL VOLUME 500 mL; TOTAL HEMOGLOBIN 12.8 G/dl (14.0-17.9)
[2019-07-17] MEDS: ketorolac trometh. 30mg/ml inj. IM PRN (04:13)
--- NOTE | 2019-07-17 04:15 | NUR ---
Patient hyperthermic, 38.3. Toradol administered, ice packs placed to groins.
[2019-07-17] MEDS: morphine 2 MG/ML inj. syringe IV PRN (05:57)
[2019-07-17] MEDS: diltiazem-NS 100mg/100ml 100 ML IV SCH ×3 (05:58→22:20)
--- NOTE | 2019-07-17 06:34 | NUR ---
Pt report given to Tomy TURNER
[2019-07-17] MEDS: loratadine 10mg tablet PO SCH (08:10)
[2019-07-17] MEDS: atenolol 50mg tablet PO SCH (08:10)
[2019-07-17] MEDS: multivitamins, therapeutics tablet PO SCH (08:10)
[2019-07-17] MEDS: thiamine 100mg tablet PO SCH (08:10)
[2019-07-17] MEDS: lactobacillus rhamnosus 10,000 MMU CELLS/CAPSULE PO SCH ×2 (08:10→20:30)
[2019-07-17] MEDS: atorvastatin 20mg tablet PO SCH (08:10)
[2019-07-17] MEDS: cyanocobalamin 500mcg tablet PO SCH (08:10)
[2019-07-17] MEDS: folic acid 1mg tablet PO SCH (08:10)
[2019-07-17] MEDS: amLODIPine 5mg tablet PO SCH (08:10)
[2019-07-17] MEDS: enoxaparin 30mg/0.3ml syringe SUBCUT SCH (08:11)
[2019-07-17] MEDS: lactulose 20gm/30ml cup PO SCH ×2 (08:11→20:30)
[2019-07-17] MEDS: pantoprazole 40 MG vial IV SCH (08:11)
[2019-07-17] MEDS: aspirin 81mg tab.chew OGT SCH (12:27)
[2019-07-17] MEDS ORDERED: vancomycin/NS 1 GM ADD-VANTAGE 250 ML IV ONE (13:55)
[2019-07-17] MEDS ORDERED: cefTAZidime inj 2 GM in normal saline 100ml IV soln 100 ML IV ONE (13:55)
[2019-07-17] MEDS ORDERED: heparin 1,000 units/ml 10ml inj HE ONE (14:05)
[2019-07-17] MEDS ORDERED: metoclopramide 10mg tablet PO PRN (14:45)
[2019-07-17] MEDS ORDERED: ondansetron 4mg rapidly disintigrating tab PO PRN (14:45)
--- NOTE | 2019-07-17 19:05 | NUR ---
RN Note -MD Communication Called September Marquis because pt was desaturating during dialysis and it was found that the radial pulse was significantly lower than the EKG heart rate. Pulse waveform on arterial line showed that approximately every 3 or 4 beats was adequately perfusing. Blood pressure on art line reading 123/67. Order received to give albumin and stop pulling fluid off with dialysis. September en route to asses pt.
[2019-07-17] MEDS ORDERED: albumin (human) 25% 100ml IV 200 ML IV ONE (19:09)
[2019-07-17] MEDS ORDERED: albumin (human) 25% 100 ML IV solution IV ONE (19:10)
[2019-07-17] MEDS: insulin glargine (Lantus) pen - multi-dose SQ SCH (20:38)
[2019-07-18] VITALS (17 sets, daily range): BP systolic 51–120; BP diastolic 34–77
[2019-07-18] MEDS ORDERED: sodium chloride inj. 154 MEQ in Dextrose 10%-water IV solution 961.5 ML IV SCH (01:20)
[2019-07-18] MEDS: mineral oil/petrolatum ophthal oint EACHEYE SCH ×3 (02:00→14:00)
--- NOTE | 2019-07-18 03:00 | NUR ---
RN Note -MD Communication Called September regarding blood sugar of 221. Pt is on D10 @ 40 ml/hr due to being NPO for procedure. Received order to not cover blood sugar and reduce D10 to 20 ML/hr.
[2019-07-18] MEDS: ipratropium/albuterol 3ml nebule NEB SCH ×4 (03:15→15:00)
[2019-07-18 03:25] LABS: ABG BASE EXCESS -8.1 mmol/L (-2.0-3.0); ABG HCO3 17.2 mmol/L (22.0-26.0); ABG OXYGEN SATURATION 92.5 % (95-98); ABG PH (T) 7.311 (7.350-7.450); ABG PO2 (T) 68.7 mmHg (83-108); ALLEN'S TEST Positive; FCOHb 0.3 % (0.5-1.5); FMetHb 0.3 % (0.3-1.12); FO2Hb 91.9 % (94-100); MINUTE VOLUME 10 L/min; PATIENT TEMPERATURE 37.1; PEEP 5 cm H2O; RESPIRATORY RATE 14 b/min; RESPIRATORY RATE (OBSERVED) 22 b/min; TIDAL VOLUME 500 mL; TOTAL HEMOGLOBIN 12.1 G/dl (14.0-17.9)
[2019-07-18 03:34] LABS: BASOPHILS % (AUTO) 0.2 % (0-1); EOSINOPHILS % (AUTO) 0 % (0-6); HEMATOCRIT 33.4 % (42.0-52.0); HEMOGLOBIN 10.8 g/dl (14.0-17.9); LYMPHOCYTES # (AUTO) 0.4 X10'3 (1.1-4.8); LYMPHOCYTES % (AUTO) 1.5 % (21-51); MEAN CORPUSCULAR HEMOGLOBIN 31.4 PG (27.0-31.0); MEAN CORPUSCULAR HGB CONC 32.3 g/dL (33.0-36.5); MEAN CORPUSCULAR VOLUME 97.1 FL (78-98); MEAN PLATELET VOLUME 10.4 FL (7.4-10.4); MONOCYTES # (AUTO) 2.8 X10'3 (0-0.9); MONOCYTES % (AUTO) 9.8 % (2-12); NEUTROPHILS # (AUTO) 25.1 X10'3 (1.8-7.7); NEUTROPHILS % (AUTO) 88.5 % (42-75); PLATELET COUNT 181 X10'3 (140-440); RED BLOOD COUNT 3.44 X10'6 (4.70-6.10); RED CELL DISTRIBUTION WIDTH 15.1 % (11.5-14.5)
[2019-07-18 03:37] LABS: WHITE BLOOD COUNT 28.3 X10'3 (4.5-11.0)
[2019-07-18 03:38] LABS: ALANINE AMINOTRANSFERASE 609 U/L (12-78); ALBUMIN 2.6 G/DL (3.4-5.0); ALBUMIN/GLOBULIN RATIO 0.7 (1.1-1.5); ALKALINE PHOSPHATASE 127 IU/L (46-116); ANION GAP 14 (8-16); ASPARTATE AMINO TRANSFERASE 74 U/L (10-37); BILIRUBIN,TOTAL 0.5 MG/DL (0.1-1.0); BLOOD UREA NITROGEN 104 MG/DL (7-18); BUN/CREATININE RATIO 26.5 (5.4-32.0); CALCIUM 7.9 MG/DL (8.5-10.1); CHLORIDE 101 MMOL/L (99-107); CREATININE 3.93 MG/DL (0.60-1.10); GLUCOSE 232 MG/DL (70-104); MAGNESIUM 2.2 MG/DL (1.5-2.4); POTASSIUM 5.8 MMOL/L (3.5-5.1); SODIUM 137 MMOL/L (135-145); TOTAL CARBON DIOXIDE 21.7 MMOL/L (24-32); TOTAL PROTEIN 6.4 G/DL (6.4-8.2); eGFR 15 ML/MIN
[2019-07-18 03:45] LABS: PARTIAL THROMBOPLASTIN TIME 32 SECONDS (22-32)
[2019-07-18] MEDS: LORazepam 2 mg/ml vial IV SCH ×3 (04:00→16:00)
[2019-07-18 04:09] LABS: TOTAL CELLS COUNTED 100
[2019-07-18 04:10] LABS: ELLIPTOCYTES FEW; PLATELET ESTIMATE NORMAL; POLYCHROMASIA FEW
[2019-07-18 06:50] LABS: ABG BASE EXCESS -8.7 mmol/L (-2.0-3.0); ABG OXYGEN SATURATION 87.2 % (95-98); ABG PCO2 (T) 41.8 mmHg (35.0-45.0); ABG PH (T) 7.252 (7.350-7.450); ABG PO2 (T) 57.4 mmHg (83-108); ALLEN'S TEST Positive; FCOHb 0.3 % (0.5-1.5); FMetHb 0.1 % (0.3-1.12); FO2Hb 86.9 % (94-100); MINUTE VOLUME 13 L/min; PATIENT TEMPERATURE 36.8; PEEP 5 cm H2O; RESPIRATORY RATE 14 b/min; TIDAL VOLUME 500 mL; TOTAL HEMOGLOBIN 12.1 G/dl (14.0-17.9)
[2019-07-18 07:45] LABS: HBSAG SCREEN Negative (Negative)
[2019-07-18] MEDS: folic acid 1mg tablet PO SCH (08:20)
[2019-07-18] MEDS: aspirin 81mg tab.chew OGT SCH (08:20)
[2019-07-18] MEDS: atorvastatin 20mg tablet PO SCH (08:20)
[2019-07-18] MEDS: thiamine 100mg tablet PO SCH (08:20)
[2019-07-18] MEDS: atenolol 50mg tablet PO SCH (08:23)
[2019-07-18] MEDS: loratadine 10mg tablet PO SCH (08:23)
[2019-07-18] MEDS: cyanocobalamin 500mcg tablet PO SCH (08:23)
[2019-07-18] MEDS: multivitamins, therapeutics tablet PO SCH (08:23)
[2019-07-18] MEDS: amLODIPine 5mg tablet PO SCH (08:24)
[2019-07-18] MEDS: lactobacillus rhamnosus 10,000 MMU CELLS/CAPSULE PO SCH (08:24)
[2019-07-18] MEDS: lactulose 20gm/30ml cup PO SCH (08:26)
[2019-07-18] MEDS: pantoprazole 40 MG vial IV SCH (08:26)
[2019-07-18] MEDS: enoxaparin 30mg/0.3ml syringe SUBCUT SCH (08:26)
[2019-07-18] MEDS ORDERED: vancomycin/NS 1 GM ADD-VANTAGE 250 ML IV ONE (08:45)
[2019-07-18] MEDS: insulin regular, human vial - multi-dose SQ SCH (09:29)
[2019-07-18] MEDS ORDERED: vancomycin/NS 1 GM ADD-VANTAGE 250 ML IV PRN (09:30)
[2019-07-18] MEDS ORDERED: cefTAZidime inj. 1 GM in normal saline 100ml IV soln 100 ML IV PRN (09:40)
[2019-07-18] MEDS ORDERED: LORazepam 2 mg/ml vial IV ONE (13:20)
[2019-07-18] MEDS ORDERED: morphine 4 MG/ML inj SYRINge IV ONE (13:25)
[2019-07-18] MEDS ORDERED: morphine 2 MG/ML inj. syringe IV PRN (14:50)
[2019-07-18] MEDS ORDERED: LORazepam 2 mg/ml vial IV PRN ×2 (14:50→14:58)
--- NOTE | 2019-07-18 16:14 | NUR ---
RN IS TO DOCUMENT YES TO ALL APPLICABLE AREAS Pronouncement of : 1. Time Physician Notified: 1610 2. Date of : 07/18/19 3. Time of : 1607 4. DNR/Withdraw life support documented: Yes 5. Monitor strip has been placed on chart: Yes 6. Assessment process is of one-minute duration and includes following criteria: a) Patient is unresponsive to all stimuli: Yes b) Pupils fixed and non-reactive: Fixed, Non-Reactive c) Auscultation of precordium reveals absence of heart tones: No Heart Tones d) Auscultation of lungs reveals absence of breath sounds: No Breath Sounds e) Absence of blood pressure / all vital signs: No BP, HR, O2 Sat, RR f) QRS complexes are not present on monitor / EKG strip: Asystole g) Pacer spikes without capture: No Pacer 4. Comments: Pt on the ventilator at 1607 on 07/18/19. Family was at bedside and patient was taken off the ventilator. Heart strip was printed showing asystole. Vital signs showed no HR, no BP, no O2 sat, no RR. Patient's pupils were fixed and non-reactive to light. Pt had no breath sounds or heart sounds upon auscultation. Family was present for and are now with patient's body mourning. Dr. Lagunas has been called and updated.
[2019-07-19] MEDS ORDERED: VANCOMYCIN LEVEL IV SCH (03:00)
== END 2019-07-19 00:22 | disposition expired | DRG 870 ==
LOC: ER 13:44 → ED HOLD 16:00 → PCU 3S 18:14 → CICU 2S 07-10 08:50
PROVIDERS: ADMIT Hospitalist; ATTEND Internal Medicine Critical Care Medicine
PROC: 5A09357 Assistance with Respiratory Ventilation, Less than 24 Consecutive Hours, Continuous Positive Airway Pressure (ICD-10-PCS; principal; 2019-07-09)
PROC: 5A1955Z Respiratory Ventilation, Greater than 96 Consecutive Hours (ICD-10-PCS; 2019-07-10)
PROC: 0BH17EZ Insertion of Endotracheal Airway into Trachea, Via Natural or Artificial Opening (ICD-10-PCS; 2019-07-10)
PROC: 5A09357 Assistance with Respiratory Ventilation, Less than 24 Consecutive Hours, Continuous Positive Airway Pressure (ICD-10-PCS; 2019-07-10)
PROC: 04HY32Z Insertion of Monitoring Device into Lower Artery, Percutaneous Approach (ICD-10-PCS; 2019-07-10)
PROC: 4A133B1 Monitoring of Arterial Pressure, Peripheral, Percutaneous Approach (ICD-10-PCS; 2019-07-10)
PROC: 4A133J1 Monitoring of Arterial Pulse, Peripheral, Percutaneous Approach (ICD-10-PCS; 2019-07-10)
PROC: 06HY33Z Insertion of Infusion Device into Lower Vein, Percutaneous Approach (ICD-10-PCS; 2019-07-10)
PROC: 0W9930Z Drainage of Right Pleural Cavity with Drainage Device, Percutaneous Approach (ICD-10-PCS; 2019-07-12)
PROC: 5A1D90Z Performance of Urinary Filtration, Continuous, Greater than 18 hours Per Day (ICD-10-PCS; 2019-07-12)
PROC: 5A1D90Z Performance of Urinary Filtration, Continuous, Greater than 18 hours Per Day (ICD-10-PCS; 2019-07-14)
PROC: 02HV33Z Insertion of Infusion Device into Superior Vena Cava, Percutaneous Approach (ICD-10-PCS; 2019-07-17)
PROC: B548ZZA Ultrasonography of Superior Vena Cava, Guidance (ICD-10-PCS; 2019-07-17)
PROC: 5A1D70Z Performance of Urinary Filtration, Intermittent, Less than 6 Hours Per Day (ICD-10-PCS; 2019-07-17)
PROC: 4A10X4Z Monitoring of Central Nervous Electrical Activity, External Approach (ICD-10-PCS; 2019-07-18)
DX: A41.9 Sepsis, unspecified organism (principal); K72.00 Acute and subacute hepatic failure without coma; N17.0 Acute kidney failure with tubular necrosis; J18.1 Lobar pneumonia, unspecified organism; J96.02 Acute respiratory failure with hypercapnia; J96.01 Acute respiratory failure with hypoxia; K76.7 Hepatorenal syndrome; F10.230 Alcohol dependence with withdrawal, uncomplicated; J91.8 Pleural effusion in other conditions classified elsewhere; R57.9 Shock, unspecified; I48.91 Unspecified atrial fibrillation; E87.5 Hyperkalemia; K72.90 Hepatic failure, unspecified without coma; E86.0 Dehydration; E86.9 Volume depletion, unspecified; F17.210 Nicotine dependence, cigarettes, uncomplicated; F41.9 Anxiety disorder, unspecified; I10 Essential (primary) hypertension; J43.9 Emphysema, unspecified; Z95.5 Presence of coronary angioplasty implant and graft; Z79.899 Other long term (current) drug therapy; Z79.82 Long term (current) use of aspirin; Z71.41 Alcohol abuse counseling and surveillance of alcoholic; Z71.6 Tobacco abuse counseling; Z51.5 Encounter for palliative care
CPT/HCPCS: 32557; 36415; 36569; 36600; 70450; 71045; 74176; 76700; 76937; 80048; 80053; 80069; 81001; 82140; 82330; 82550; 82570; 82803; 82948; 83605; 83735; 83880; 84100; 84134; 84145; 84156; 84300; 84484; 84540; 85018; 85025; 85610; 85730; 86803; 87040; 87070; 87081; 87088; 87340; 90732; 90935; 93005; 93306; 94002; 94003; 94640; 94660; 94760; 95816; 96365; 96366; 96375; 96376; 99285; C9113; E1594; G0257; G0378; J0610; J0696; J0713; J1630; J1644; J1650; J1815; J1885; J1940; J1956; J2060; J2250; J2270; J2930; J3010; J3370; J3411; J3475; J3480; J3490; J7030; J7040; J7060; J7131; P9047; Q2037